=== PATIENT | male | born 1940 | race Caucasian/White ===

== ENCOUNTER → 2017-09-01 | Outpatient (RCR) | payer MEDICARE, OTHER | END | disposition home or self-care (01) | LOC: CR3 08-02 11:00 | PROVIDERS: ATTEND Family Medicine | DX: Z29.8 Encounter for other specified prophylactic measures (principal) ==

== ENCOUNTER 2017-10-01 15:10 | Outpatient (RCR) | payer MEDICARE, OTHER | END 2017-10-03 | disposition home or self-care (01) | LOC: CR3 15:10 | PROVIDERS: ATTEND Family Medicine | DX: Z29.8 Encounter for other specified prophylactic measures (principal) ==

== ENCOUNTER 2017-11-01 16:43 | Outpatient (RCR) | payer MEDICARE, OTHER | END 2017-11-03 | disposition home or self-care (01) | LOC: CR3 16:43 | PROVIDERS: ATTEND Family Medicine | DX: Z29.8 Encounter for other specified prophylactic measures (principal) ==

== ENCOUNTER 2017-12-01 14:21 | Outpatient (RCR) | payer MEDICARE, OTHER | END 2017-12-05 | disposition home or self-care (01) | LOC: CR3 14:21 | PROVIDERS: ATTEND Family Medicine | DX: Z29.8 Encounter for other specified prophylactic measures (principal) ==

== ENCOUNTER → 2018-01-05 | Outpatient (RCR) | payer MEDICARE, OTHER | END | disposition home or self-care (01) | LOC: CR3 12-06 06:00 | PROVIDERS: ATTEND Family Medicine | DX: Z29.8 Encounter for other specified prophylactic measures (principal) ==

== ENCOUNTER 2018-02-04 16:00 | Outpatient (RCR) | payer MEDICARE, OTHER | END 2018-02-06 | disposition home or self-care (01) | LOC: CR3 16:00 | PROVIDERS: ATTEND Family Medicine | DX: Z29.8 Encounter for other specified prophylactic measures (principal) ==

== ENCOUNTER → 2018-03-09 | Outpatient (RCR) | payer MEDICARE, OTHER | END | disposition home or self-care (01) | LOC: CR3 02-07 14:30 | PROVIDERS: ATTEND Family Medicine | DX: Z29.8 Encounter for other specified prophylactic measures (principal) ==

== ENCOUNTER 2018-04-13 14:57 | Outpatient (RCR) | payer MEDICARE, OTHER | END 2018-04-15 | disposition home or self-care (01) | LOC: CR3 14:57 | PROVIDERS: ATTEND Family Medicine | DX: Z29.8 Encounter for other specified prophylactic measures (principal) ==

== ENCOUNTER → 2018-05-18 | Outpatient (RCR) | payer MEDICARE, OTHER | END | disposition home or self-care (01) | LOC: CR3 04-18 15:00 | PROVIDERS: ATTEND Family Medicine | DX: Z29.8 Encounter for other specified prophylactic measures (principal) ==

== ENCOUNTER 2018-06-15 16:29 | Outpatient (RCR) | payer MEDICARE, OTHER | END 2018-06-19 | disposition home or self-care (01) | LOC: CR3 16:29 | PROVIDERS: ATTEND Family Medicine | DX: Z29.8 Encounter for other specified prophylactic measures (principal) ==

== ENCOUNTER → 2018-07-20 | Outpatient (RCR) | payer MEDICARE, OTHER | END | disposition home or self-care (01) | LOC: CR3 06-20 15:30 | PROVIDERS: ATTEND Family Medicine | DX: Z29.8 Encounter for other specified prophylactic measures (principal) ==

== ENCOUNTER 2018-08-17 14:24 | Outpatient (RCR) | payer MEDICARE, OTHER | END 2018-08-21 | disposition home or self-care (01) | LOC: CR3 14:24 | PROVIDERS: ATTEND Family Medicine | DX: Z29.8 Encounter for other specified prophylactic measures (principal) ==

== ENCOUNTER → 2018-09-21 | Outpatient (RCR) | payer MEDICARE, OTHER | END | disposition home or self-care (01) | LOC: CR3 08-22 14:00 | PROVIDERS: ATTEND Family Medicine | DX: Z29.8 Encounter for other specified prophylactic measures (principal) ==

== ENCOUNTER → 2018-09-28 | Outpatient (CLI) | payer MEDICARE, OTHER ==
--- NOTE | 2018-09-28 17:32 | Diagnostic Imaging Report ---
INDICATION: Left hip pain. COMPARISON: None available. TECHNIQUE: Two radiographs of the left hip dated 09/28/2018. FINDINGS: No acute fracture or dislocation. No destructive osseous process. Mild degenerative changes within the left hip with mild joint space narrowing. The left femoral head maintains normal shape and contour. The pubic symphysis is intact. Scattered vascular calcifications. Surgical clips are seen within the soft tissues of the medial left thigh. IMPRESSION: 1. No acute osseous abnormality with mild degenerative changes. 2. Moderate vascular calcifications. Dictated on workstation # [id number]
== END ==
LOC: RAD 13:48
PROVIDERS: ATTEND Family Medicine
DX: M25.552 Pain in left hip (principal); I99.8 Other disorder of circulatory system
CPT/HCPCS: 73502

== ENCOUNTER → 2018-10-26 | Outpatient (CLI) | payer MEDICARE ==
--- NOTE | 2018-10-26 16:42 | Diagnostic Imaging Report ---
INDICATION: Persistent cough, 30 pound weight loss over 3 months. PA and lateral chest. FINDINGS: There are postop changes from CABG surgery. Heart size and pulmonary vascularity are normal. Lungs are clear. There are no effusions or pneumothoraces. IMPRESSION: Postsurgical changes of the chest. No acute abnormality seen. Dictated by: Dictated on workstation # [id number]
== END ==
LOC: RAD 15:55
PROVIDERS: ATTEND Nurse Practitioner Family
DX: R05 Cough (principal); R63.4 Abnormal weight loss; Z95.1 Presence of aortocoronary bypass graft
CPT/HCPCS: 71046

== ENCOUNTER → 2018-10-28 | Outpatient (RCR) | payer MEDICARE, OTHER | END | disposition home or self-care (01) | LOC: CR3 09-28 16:34 | PROVIDERS: ATTEND Family Medicine | DX: Z29.8 Encounter for other specified prophylactic measures (principal) ==

== ENCOUNTER → 2018-11-30 | Outpatient (RCR) | payer MEDICARE | END | disposition home or self-care (01) | LOC: CR3 10-31 16:12 | PROVIDERS: ATTEND Family Medicine | DX: Z29.8 Encounter for other specified prophylactic measures (principal) ==

== ENCOUNTER 2018-12-30 15:31 | Outpatient (RCR) | payer MEDICARE | END 2019-01-01 | disposition home or self-care (01) | LOC: CR3 15:31 | PROVIDERS: ATTEND Family Medicine | DX: Z29.8 Encounter for other specified prophylactic measures (principal) ==

== ENCOUNTER → 2019-01-23 | Outpatient (CLI) | payer MEDICARE ==
--- NOTE | 2019-01-23 13:25 | Diagnostic Imaging Report ---
INDICATION: Cough x3 weeks. PA and lateral chest. FINDINGS: There are postop changes from CABG surgery. Heart size is at the upper limits of normal. Pulmonary vascularity is normal. Lungs are clear. IMPRESSION: Postsurgical changes in the chest. No infiltrates or acute abnormality seen. Dictated by: Dictated on workstation # [id number]
== END ==
LOC: RAD 11:29
PROVIDERS: ATTEND Family Medicine
DX: R05 Cough (principal); Z98.890 Other specified postprocedural states
CPT/HCPCS: 71046

== ENCOUNTER → 2019-01-27 | Outpatient (CLI) | payer MEDICARE ==
--- NOTE | 2019-01-27 14:36 | Diagnostic Imaging Report ---
PROCEDURE: US Thyroid. TECHNIQUE: Multiple real-time grayscale images were obtained of the thyroid in various projections. INDICATION: Thyroid nodule. COMPARISON: No prior thyroid ultrasounds are available for comparison. FINDINGS: Right lobe of the thyroid measures 5.5 x 2.5 x 2.0 cm and the left lobe measures 6.1 x 2.1 x 2.3 cm. Heterogeneous hypoechoic nodule in mid portion of left lobe of thyroid measures 1.5 x 0.9 x 1.0 cm. No microcalcifications are seen. A right mid thyroid nodule measures 1.5 x 1.1 x 1.3 cm. No definite microcalcifications are seen. A nodule in the lower pole is seen measuring 1.2 x 1.1 x 1.5 cm. No microcalcifications are identified. Isthmus is 8 mm in thickness. IMPRESSION: Multinodular thyroid, likely owing to multinodular goiter. Followup ultrasound in six months could be performed to confirm stability. Dictated by: Dictated on workstation # [id number]
== END ==
LOC: RAD 10:50
PROVIDERS: ATTEND Family Medicine
DX: E04.2 Nontoxic multinodular goiter (principal)
CPT/HCPCS: 76536

== ENCOUNTER → 2019-02-03 | Outpatient (RCR) | payer MEDICARE | END | disposition home or self-care (01) | LOC: CR3 01-04 15:00 | PROVIDERS: ATTEND Family Medicine | DX: Z29.8 Encounter for other specified prophylactic measures (principal) ==

== ENCOUNTER → 2019-03-08 | Outpatient (RCR) | payer MEDICARE | END | disposition home or self-care (01) | LOC: CR3 02-06 14:00 | PROVIDERS: ATTEND Family Medicine | DX: Z29.8 Encounter for other specified prophylactic measures (principal) ==

== ENCOUNTER 2019-04-07 16:12 | Outpatient (RCR) | payer MEDICARE | END 2019-04-09 | disposition home or self-care (01) | LOC: CR3 16:12 | PROVIDERS: ATTEND Family Medicine | DX: Z29.8 Encounter for other specified prophylactic measures (principal) ==

== ENCOUNTER → 2019-05-10 | Outpatient (RCR) | payer MEDICARE | END | disposition home or self-care (01) | LOC: CR3 04-10 14:26 | PROVIDERS: ATTEND Family Medicine | DX: Z29.8 Encounter for other specified prophylactic measures (principal) ==

== ENCOUNTER 2019-06-09 13:45 | Outpatient (RCR) | payer MEDICARE | END 2019-06-11 | disposition home or self-care (01) | LOC: CR3 13:45 | PROVIDERS: ATTEND Family Medicine | DX: Z29.8 Encounter for other specified prophylactic measures (principal) ==

== ENCOUNTER → 2019-07-12 | Outpatient (RCR) | payer MEDICARE ==
--- NOTE | 2019-07-11 17:19 | NUR ---
CONTACTED PT FOR INFECTIOUS DISEASE SCREENING (PER ADMINISTRATION ORDERS): PT STATES HE DID HAVE COUGH, BUT SAW DR MASON. HE HAS TAKEN STEROIDS, TAMIFLU AND HAS BEEN SYMPTOM FREE FOR 10 DAYS.
== END | disposition home or self-care (01) ==
LOC: CR3 06-12 15:00
PROVIDERS: ATTEND Family Medicine
DX: Z29.8 Encounter for other specified prophylactic measures (principal)

== ENCOUNTER 2019-07-14 15:00 | Outpatient (RCR) | payer MEDICARE | END 2019-08-13 | disposition home or self-care (01) | LOC: CR3 15:00 | PROVIDERS: ATTEND Family Medicine | DX: Z29.8 Encounter for other specified prophylactic measures (principal) ==

== ENCOUNTER → 2019-09-26 | Outpatient (CLI) | payer MEDICARE ==
--- NOTE | 2019-09-26 19:05 | Diagnostic Imaging Report ---
PROCEDURE: US Thyroid. TECHNIQUE: Multiple real-time grayscale images were obtained of the thyroid in various projections. INDICATION: Multinodular goiter. Correlation is made with prior thyroid ultrasound from 01/27/2019. FINDINGS: Right lobe of the thyroid measures 5.5 x 2.2 x 1.7 cm and the left lobe measures 5.3 x 1.9 x 2.0 cm. Isthmus is 6 mm in thickness. Both lobes remain heterogeneous. There are bilateral thyroid nodules. Nodule in the lower pole of right lobe measures slightly smaller today at 1.1 cm in diameter compared with 1.5 cm on prior. A nodule in the mid aspect of the right lobe on prior is not well seen today. A left lobe thyroid nodule is also measuring slightly smaller at approximately 12 mm compared with 15 mm. No new mass is detected. IMPRESSION: Bilateral thyroid nodules appearing slightly smaller on today's study when compared with exam from 01/27/2019. No dominant thyroid mass is detected. Dictated by: Dictated on workstation # [id number]
== END ==
LOC: RAD 12:45
PROVIDERS: ATTEND Nurse Practitioner Family
DX: E04.2 Nontoxic multinodular goiter (principal)
CPT/HCPCS: 76536

== ENCOUNTER → 2020-07-16 | Outpatient (CLI) | payer MEDICARE | LOC: WOUNDCARE 14:40 | PROVIDERS: ATTEND Surgery | DX: L89.313 Pressure ulcer of right buttock, stage 3 (principal); M16.12 Unilateral primary osteoarthritis, left hip; M25.552 Pain in left hip | CPT/HCPCS: 99212 ==

== ENCOUNTER → 2020-07-22 | Outpatient (CLI) | payer MEDICARE | LOC: WOUNDCARE 11:41 | PROVIDERS: ATTEND Surgery | DX: I96 Gangrene, not elsewhere classified (principal); L89.313 Pressure ulcer of right buttock, stage 3; M16.12 Unilateral primary osteoarthritis, left hip | CPT/HCPCS: 99212 ==

== ENCOUNTER → 2020-07-29 | Outpatient (CLI) | payer MEDICARE | LOC: WOUNDCARE 11:03 | PROVIDERS: ATTEND Surgery | DX: I96 Gangrene, not elsewhere classified (principal); L89.313 Pressure ulcer of right buttock, stage 3; M16.12 Unilateral primary osteoarthritis, left hip; E44.1 Mild protein-calorie malnutrition | CPT/HCPCS: 99212 ==

== ENCOUNTER → 2020-08-05 | Outpatient (CLI) | payer MEDICARE | LOC: WOUNDCARE 10:51 | PROVIDERS: ATTEND Surgery | DX: I96 Gangrene, not elsewhere classified (principal); L89.313 Pressure ulcer of right buttock, stage 3; M16.12 Unilateral primary osteoarthritis, left hip; E44.1 Mild protein-calorie malnutrition | CPT/HCPCS: 99212 ==

== ENCOUNTER 2020-08-19 11:09 | Inpatient (IN) | payer MEDICARE ==
[~2020-08-19] VITALS: Ht 175.3 cm; Wt 73.8 kg
[2020-08-19] MEDS ORDERED: LOPERAMIDE 2 MG (IMODIUM) TABLET PO PRN (12:30)
[2020-08-19] MEDS ORDERED: ALPRAZolam 0.25 MG (XANAX) TAB PO PRN (12:30)
[2020-08-19] MEDS ORDERED: LACTULOSE SYRUP 10GM/15ML (ENULOSE) 30ML UDC PO PRN (12:30)
[2020-08-19] MEDS ORDERED: diphenhydrAMINE 25 MG TAB (BENADRYL) PO PRN (12:30)
[2020-08-19] MEDS ORDERED: DOCUSATE SODIUM 100 MG (COLACE) CAP PO PRN (12:30)
[2020-08-19] MEDS ORDERED: CALCIUM CARBONATE 500 MG (TUMS) TAB.CHEW PO PRN (12:30)
[2020-08-19] MEDS ORDERED: ONDANSETRON 4 MG (ZOFRAN) ORAL DISSOLVE TAB PO PRN (12:30)
[2020-08-19] MEDS ORDERED: FLEET ENEMA ADULT 1 EA BTL PR PRN (12:30)
[2020-08-19] MEDS ORDERED: guaiFENesin/CODEINE (ROBITUSSIN AC) 10ML UDC PO PRN (12:30)
[2020-08-19] MEDS ORDERED: MELATONIN 3 MG TABLET PO PRN (12:30)
[2020-08-19] MEDS ORDERED: BISACODYL 10 MG SUPP (DULCOLAX) PR PRN (12:30)
[2020-08-19] MEDS ORDERED: MUPI22OI2 NSEACH (13:59)
[2020-08-19] MEDS ORDERED: MULT-1009 PO (13:59)
[2020-08-19] MEDS ORDERED: GABA-486 PO (13:59)
[2020-08-19] MEDS ORDERED: FOLI1TAB33 PO (13:59)
[2020-08-19] MEDS ORDERED: BETA15OI2 TP (13:59)
[2020-08-19] MEDS ORDERED: FURO40TA4 PO (13:59)
[2020-08-19] MEDS ORDERED: RT-ALBUINH IH (13:59)
[2020-08-19] MEDS ORDERED: NITR0.4T39 SL (13:59)
[2020-08-19] MEDS ORDERED: CALC-250 PO (13:59)
[2020-08-19] MEDS ORDERED: LYSI500T10 PO (13:59)
[2020-08-19] MEDS ORDERED: TRM50T PO (13:59)
[2020-08-19] MEDS ORDERED: RANO500T3 PO (13:59)
[2020-08-19] MEDS ORDERED: METO100T12 PO (13:59)
[2020-08-19] MEDS ORDERED: PRAV80TA2 PO (13:59)
[2020-08-19] MEDS ORDERED: FENO145T2 PO (13:59)
[2020-08-19] MEDS ORDERED: CYAN-41 PO (13:59)
[2020-08-19] MEDS ORDERED: SENN-145 PO (13:59)
[2020-08-19] MEDS ORDERED: [UNRECOGNIZED DRUG - SUPPLY] TOP (13:59)
[2020-08-19] MEDS ORDERED: TERA5CAP10 PO (13:59)
[2020-08-19] MEDS ORDERED: FAMO20TA3 PO (13:59)
[2020-08-19] MEDS ORDERED: CLOP75TA69 PO (13:59)
[2020-08-19] MEDS ORDERED: ASPI-1238 PO (13:59)
[2020-08-19] MEDS ORDERED: NF-ESOM40C PO (13:59)
[2020-08-19] MEDS ORDERED: ISOS30TA82 PO (13:59)
[2020-08-19 14:00] VITALS: BP 127/78
--- NOTE | 2020-08-19 15:10 | Occupational Therapy Eval ---
OT Evaluation-General/PLF Medical Diagnosis Admission Date Aug 19, 2020 at 14:10 Medical Diagnosis: L DENISA Onset Date: Aug 12, 2020 Therapy Diagnosis Therapy Diagnosis: weakness, decreased ADL status Precautions Precautions/Isolations: Fall Prevention, Standard Precautions, Pressure Ulcer Referral Physician: Henrry Joiner Reason: Evaluation/Treatment Medical History Pertinent Medical History: Arthritis, CABG, CAD, CVA, GERD, HTN Additional Medical History lumbar laminectomy, CKD, HLD, ischemic cardiomyopathy, pacemaker. Current History s/p L DENISA 08/12/20 (anterior approach with anterior hip precautions) due to avascular necrosis of L hip bone Social History Home: Multilevel Current Living Status: Alone Entry Into Home: Ramp (into house), Stairs With Railing Steps Inside Home: 13 Pt has 2 stories, able to manage on just one floor but would like to use both floors. ADL-Prior Level of Function SCALE: Activities may be completed with or without assistive devices. 8-Aoxxavyvmh-ayhnxyc completes the activity by him/herself with no assistance from a helper. 5-Set-up or Clean-up Assistance-helper sets up or cleans up; patient completes activity. [place] assists only prior to or following the activity. 4-Supervision or Touching Assistance-helper provides verbal cues and/or touching/steadying and/or contact guard assistance as patient completes activit y. Assistance may be provided throughout the activity or intermittently. 3-Partial/Moderate Assistance-helper does LESS THAN HALF the effort. [place] lifts, holds or supports trunk or limbs, but provides less than half the effort. 2-Substantial/Maximal Assistance-helper does MORE THAN HALF the effort. [place] lifts or holds trunk or limbs and provides more than half the effort. 1-Ghovdjnol-ebavbo does ALL the effort. Patient does none of the effort to complete the activity. Or, the assistance of 2 or more helpers is required for the patient to complete the activity. If activity was not attempted, code reason: 7-Patient Refused. 9-Not Applicable-not attempted and the patient did not perform the activity before the current illness, exacerbation or injury. 10-Not Attempted due to Environmental Limitations-(lack of equipment, weather restraints, etc.). 88-Not Attempted due to Medical Conditions or Safety Concerns. ADL PLOF Comments Pt independent with ADLs and functional mobility at [facility], primarily uses walker but also has w/c. Self Care: Independent Functional Cognition: Independent DME/Equipment: Bath Chair, Shower OT Current Status Subjective Pt agreeable to OT evaluation then OT/PT cotreat. 2/10 pain in L hip. Mental Status/Objective Patient Orientation: Person, Place, Time, Situation Current Glasses/Contacts: Yes Hearing Aids: No Dentures/Partials: Yes (partials) Hand Dominance: Right Upper Extremity ROM WFL Upper Extremity Coordination WFL Upper Extremity Sensation WFL Upper Extremity Strength grossly 4/5 BUEs ADL-Treatment Eating (QC): 6 (per pt report) Oral Hygiene (QC): 4 (SBA standing at sink.) Shower/Bathe Self (QC): 3 (Min A with LEs. Pt able to wash/dry all other parts with SBA in stand at GBs) Upper Body Dressing (QC): 5 (set up) Lower Body Dressing (QC): 3 (Min A donning/doffing LLE with pants) On/Off Footwear (QC): 3 (Min A doffing/donning LLE footwear. Pt able to complete RLE.) Toileting Hygiene (QC): 4 (SBA, pt able to manage clothing and perform hygiene.) Pt required increased time with all ADLs due to slow movements and thoroughness with tasks. Other Treatments OT evaluation complete then OT/PT cotreat due to skill of 2 clinicians required which a clinical rehab liaison could not perform in order to coordinate UE/LEs, to decrease fall risk, and due to pt's limitations in pain, mobility, activity tolerance, and strength. OT focused on UE placement, cues for sequencing and safety, ADLs, PT focused on LE placement, gross overall movements, transfers/mobility. Pt used FWW to bathroom, stood at sink to complete oral care, then transferred onto [place]. Pt doffed clothes, completed shower, then transferred to chair to get dressed. Pt required increased time with all ADLs due to slow movements and thoroughness with tasks. He then stood at FWW and ambulated into therapy gym. Pt stood at FWW to hit balloon back and forth with OT as PT assisted with balance. This was complete to focus on higher level balance as well as activity tolerance. Pt took a seated rest break, then used FWW to return to his room. Post tx, pt seated in recliner, call light in reach and all needs met. 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 2=Patient will verbalize/demonstrate understanding of assistive devices /modifications for ADL. 3=Patient will improve strength/tolerance for activity to enable patient to perform ADL's. OT Education/Plan Problem List/Assessment Assessment: Decreased Activ Tolerance, Decreased UE Strength, Impaired Funct Balance, Impaired I ADL's, Impaired Self-Care Skills Discharge Recommendations Plan/Recommendations: Continue POC Equpiment Recommendations-D/C: Hip Kit Treatment Plan/Plan of Care Patient would benefit from OT for education, treatment and training to promote independence in ADL's, mobility, safety and/or upper extremity function for ADL's. Plan of Care: ADL Retraining, Functional Mobility, Group Exercise/Act as Ind, UE Funct Exercise/Act Treatment Duration: September 06, 2020 Frequency: At least 5 of 7 days/Wk (IRF) Estimated Hrs Per Day: 1.5 hours per day Rehab Potential: Good Time/GCodes Start Time: 14:20 Stop Time: 15:50 Total Time Billed (hr/min): 90 Billed Treatment Time [id number] OT evaluation, [id number] OT/PT cotreat 1, EVM (10'), ADL 4 (60'), FA (15') MILLIE BRANCH OT Aug 19, 2020 15:09
--- NOTE | 2020-08-19 15:31 | Physical Therapy Evaluation ---
PT Evaluation-General Medical Diagnosis Admission Date Aug 19, 2020 at 14:10 Medical Diagnosis: L DENISA Onset Date: Aug 12, 2020 Therapy Diagnosis Therapy Diagnosis: weakness; abn gait Precautions Precautions/Isolations: Fall Prevention, Standard Precautions, Pressure Ulcer Referral Physician: Henrry Reason for Referral: Evaluation/Treatment Medical History Pertinent Medical History: Arthritis, CABG, CAD, CVA, GERD, HTN Additional Medical History Chronic kidney disease, ischemic cardiomyopathy, pacemaker, lumbar laminectomy. Current History Left THR post avascular necrosis of hip. Surgery 08/12/2020. Reviewed History: Yes Social History Home: Multilevel Current Living Status: Alone Entry Into Home: Ramp, Stairs With Railing PT Steps Inside Home: 13 Prior Prior Level of Function SCALE: Activities may be completed with or without assistive devices. 1-Fntgafydll-ziduvei completes the activity by him/herself with no assistance from a helper. 5-Set-up or Clean-up Assistance-helper sets up or cleans up; patient completes activity. [place] assists only prior to or following the activity. 4-Supervision or Touching Assistance-helper provides verbal cues and/or touching/steadying and/or contact guard assistance as patient completes activity. Assistance may be provided throughout the activity or intermittently. 3-Partial/Moderate Assistance-helper does LESS THAN HALF the effort. [place] lifts, holds or supports trunk or limbs, but provides less than half the effort. 2-Substantial/Maximal Assistance-helper does MORE THAN HALF the effort. [place] lifts or holds trunk or limbs and provides more than half the effort. 8-Dxsfxyafz-dofpyq does ALL the effort. Patient does none of the effort to complete the activity. Or, the assistance of 2 or more helpers is required for the patient to complete the activity. If activity was not attempted, code reason: 7-Patient Refused. 9-Not Applicable-not attempted and the patient did not perform the activity b efore the current illness, exacerbation or injury. 10-Not Attempted due to Environmental Limitations-(lack of equipment, weather restraints, etc.). 88-Not Attempted due to Medical Conditions or Safety Concerns. Bed Mobility: 6 Transfers (B,C,W/C): 6 Gait: 6 Stairs: 6 Indoor Mobility (Ambulation): Independent Stairs: Independent PT Evaluation-Current Subjective Pt agreeable to PT. Reports he is anxious to start therapy services. Pt/Family Goals Return home alone as before. Objective Patient Orientation: Person, Place, Time, Situation ROM/Strength ROM Lower Extremities WNL Strength Lower Extremities Rigth LE strength 5/5; left LE strength grossly 4-/5 throughout Integumentary/Posture Integumentary Refer to nursing notes for full assessement. Bowel Incontinence: No Bladder Incontinence: No Posture normal and symmetrical Neuromuscular (Tone, Coordination, Reflexes) intact and without functional deficit Sensory Vision: Functional Hearing: Functional Hand Dominance: Right Sensation Right Lower Extremit: Intact Sensation Left Lower Extremity: Intact Transfers Roll Left & Right (QC): 4 Sit to Lying (QC): 3 (assist with left LE) Lying to Sitting/Side of Bed(Q: 3 (assist with left LE) Sit to Stand (QC): 4 Chair/Dij-th-Nhgiq Xfer(QC): 4 Toilet Transfer (QC): 4 Car Transfer (QC): 3 (asssit wth left LE) Gait Does the Patient Walk?: Yes Mode of Locomotion: Walk Anticipated Mode of Locomotion: Walk Walk 10 feet (QC): 4 Walk 50 ft with 2 Turns(QC): 4 Walk 150 ft (QC): 4 Walking 10ft/uneven surface-QC: 3 (min assist for balance/safety) Gait Assistive Device: FWW Comments/Gait Description slightly antalgic with decreased pace Wheelchair Training Does the Pt Use a Wheelchair?: No Wheel 50 ft with 2 turns (QC): 9 Wheel 150 ft (QC): 9 Stairs 1 Step (curb) (QC): 3 4 Steps (QC): 88 12 Steps (QC): 88 Balance Sitting Static: Normal Sitting Dynamic: Normal Standing Static: Fair Standing Dynamic: Fair Picking up an Object (QC): 88 Assessment/Needs Post left THR due to avascular necrosis. He presents with functional left LE weakness and balance deficits as well as impaired functional activity [place] that limits bed mobility, transfers and gait. He is unable to safely or effectively mobilize without assist. He will benefit from skilled PT services to address his deficits and allow him to return home alone as before. He has good potential to progress. Rehab Potential: Good PT Short Term Goals Short Term Goals Time Frame: Aug 26, 2020 Sit to lyin Lying to sitting on side of be: 5 Walk 150 feet: 5 4 steps: 4 PT Acting Professor Goals Alf Goals PT Alf Goals Time Frame: September 04, 2020 Roll Left & Right (QC): 6 Sit to Lying (QC): 6 Lying-Sitting on Side/Bed(QC): 6 Sit to Stand (QC): 6 Chair/Xsm-ir-Uliiu Xfer(QC): 6 Toilet Transfer (QC): 6 Car Transfer (QC): 6 Does the Patient Walk: Yes Walk 10 feet (QC): 6 Walk 50ft with 2 Turns (QC): 6 Walk 150 ft (QC): 6 Walking 10ft on Uneven Surface: 6 1 Step (curb) (QC): 6 4 Steps (QC): 6 12 Steps (QC): 6 Picking up an Object (QC): 4 Does the Pt use WC or Scooter?: No Wheel 50 feet with 2 turns (QC: 9 Wheel 150 feet: 9 PT Plan Problem List Problem List: Activity Tolerance, Functional Strength, Safety, Balance, Gait, Transfer, Bed Mobility Treatment/Plan Treatment Plan: Continue Plan of Care Treatment Plan: Bed Mobility, Education, Functional Activity Leonela, Functional Strength, Group Therapy, Gait, Safety, Therapeutic Exercise, Transfers Treatment Duration: September 04, 2020 Frequency: At least 5 of 7 days/Wk (IRF) Estimated Hrs Per Day: 1.5 hours per day Patient and/or Family Agrees t: Yes Safety Risks/Education Patient Education: Safety Issues Teaching Recipient: Patient Teaching Methods: Discussion Response to Teaching: Reinforcement Needed Time/GCodes Time In: 1410 Time Out: 1420 Total Billed Treatment Time: 10 Total Billed Treatment visit [place] 10 JOVANY JACOBS PT Aug 19, 2020 15:31
--- NOTE | 2020-08-19 15:52 | Physical Therapy Daily Note ---
PT Daily Note-Current Subjective Patient reports 2/10 hip pain, seated upright in recliner pre tx. Patient consented to PT. Appearance Patient seated upright in chair, with call button and tray table within reach, all needs met. Mental Status Patient Orientation: Person, Place, Time, Normal For Age Transfers SCALE: Activities may be completed with or without assistive devices. 0-Xzlcscprhg-ucorxaz completes the activity by him/herself with no assistance from a helper. 5-Set-up or Clean-up Assistance-helper sets up or cleans up; patient completes activity. [place] assists only prior to or following the activity. 4-Supervision or Touching Assistance-helper provides verbal cues and/or touching/steadying and/or contact guard assistance as patient completes activ ity. Assistance may be provided throughout the activity or intermittently. 3-Partial/Moderate Assistance-helper does LESS THAN HALF the effort. [place] lifts, holds or supports trunk or limbs, but provides less than half the effort. 2-Substantial/Maximal Assistance-helper does MORE THAN HALF the effort. [place] lifts or holds trunk or limbs and provides more than half the effort. 9-Vfgikrlzb-oiohww does ALL the effort. Patient does none of the effort to complete the activity. Or, the assistance of 2 or more helpers is required for the patient to complete the activity. If activity was not attempted, code reason: 7-Patient Refused. 9-Not Applicable-not attempted and the patient did not perform the activity before the current illness, exacerbation or injury. 10-Not Attempted due to Environmental Limitations-(lack of equipment, weather restraints, etc.). 88-Not Attempted due to Medical Conditions or Safety Concerns. Sit to Stand (QC): 4 Chair/Nff-ww-Duqed Xfer(QC): 4 SBA Gait Training Does the Patient Walk?: Yes Distance: 120' x2 Walk 10 feet (QC): 4 Walk 50 ft with 2 Turns(QC): 4 Gait Assistive Device: FWW SBA. Gait is steady, patient bears weight well through L LE Treatments Co-treated with OT secondary to patient impairments and decreased balance. PT focused on transfers and balance with ADLs (patient bathed) while OT focused on ADLs and grooming techniques. PT and OT added balloon-batting game for 10 min to challenge patient static balance with UE reaching outside of YO. Patient was able to accomplish activity with no dipika LOB. Assessment Current Status: Good Progress Patient demonstrates steadiness with transfers and functional mobility, is not restricted in movement by pain. PT Short Term Goals Short Term Goals Time Frame: Aug 26, 2020 Sit to lyin Lying to sitting on side of be: 5 Walk 150 feet: 5 4 steps: 4 PT Mcc Goals Mcc Goals PT Mcc Goals Time Frame: September 04, 2020 Roll Left & Right (QC): 6 Sit to Lying (QC): 6 Lying-Sitting on Side/Bed(QC): 6 Sit to Stand (QC): 6 Chair/Bjm-fu-Fbnjw Xfer(QC): 6 Toilet Transfer (QC): 6 Car Transfer (QC): 6 Does the Patient Walk: Yes Walk 10 feet (QC): 6 Walk 50ft with 2 Turns (QC): 6 Walk 150 ft (QC): 6 Walking 10ft on Uneven Surface: 6 1 Step (curb) (QC): 6 4 Steps (QC): 6 12 Steps (QC): 6 Picking up an Object (QC): 4 Does the Pt use WC or Scooter?: No Wheel 50 feet with 2 turns (QC: 9 Wheel 150 feet: 9 PT Plan Problem List Problem List: Activity Tolerance, Functional Strength, Safety, Balance, Gait, Transfer, Bed Mobility, ROM Treatment/Plan Treatment Plan: Continue Plan of Care Treatment Plan: Bed Mobility, Education, Functional Activity Leonela, Functional Strength, Group Therapy, Gait, Safety, Therapeutic Exercise, Transfers Treatment Duration: September 04, 2020 Frequency: At least 5 of 7 days/Wk (IRF) Estimated Hrs Per Day: 1.5 hours per day Patient and/or Family Agrees t: Yes Safety Risks/Education Patient Education: Gait Training, Transfer Techniques, Reviewed Precautions, Correct Positioning, Safety Issues Teaching Recipient: Patient Teaching Methods: Demonstration, Discussion Response to Teaching: Verbalize Understanding, Return Demonstration Time/GCodes Time In: 1430 Time Out: 1550 Total Billed Treatment Time: 80 Total Billed Treatment 1 visit: FA x4: 65' EX: 15' LUZ BOYD PT Aug 19, 2020 15:52
[2020-08-19 16:10] VITALS: BP 109/65
--- NOTE | 2020-08-19 17:36 | PM&R Post Admission Assessment ---
PM&R HP Date of Visit: Aug 19, 2020 Time of Visit: 18:00 History of Present Illness CC: Left hip fracture debility HPI: This is an orthopedic surgery patient of Dr. Lim who presents from [facility] due to left hip fracture s/p repair and in need of recovery. He will need aggressive PT and OT to gain enough function to return to independent living. At this current time, Pt reports pain is well controlled, and he has been waiting on insurance approval for six days. BM+. Voiding well. Went to ICU the day of surgery due to hypotension and required 1 unit of blood. Pain is improving by the day. 1.5 years ago and still dealing with grief. Past Rwmskeq-Anrlyl-Tfqopw Hx Past Med/Social Hx: Reviewed Nursing Past Med/Soc Hx, Reviewed and Corrections made Patient Social History Marrital Status: Employed/Student: retired Alcohol Use: Denies Use Smoking Status: Never a Smoker Immunizations Up To Date Date of Influenza Vaccine: Jan 31, 2020 Past Medical History Surgeries: Orthopedic Cardiac: Coronary Artery Disease, High Cholesterol, Hypertension Genitourinary: Benign Prostatic Hyperpl Gastrointestinal: Gastroesophageal Reflux Musculoskeletal: Arthritis, Chronic Back Pain Prior Level of Function Bed Mobility: 6 Transfers: 6 Gait: 6 Stairs: 6 Indoor Mobility (Ambulation): Independent Stairs: Independent Self Care: Independent Functional Cognition: Independent Current Level of Fuctioning Roll Left to Right: 4 Sit to Lyin (assist with left LE) Lying to Sitting/Side of Bed: 3 (assist with left LE) Sit to Stand: 4 Chair/Mvl-gr-Gxgco Xfer: 4 Car Transfer: 3 (asssit [facility] left LE) Does the Patient Walk: Yes Mode of Locomotion: Walk Anticipated Mode of Locomotion: Walk Walk 10 feet: 4 Walk 50 ft with 2 Turns: 4 Walk 150 ft: 4 Walking 10ft on uneven surface: 3 (min assist for balance/safety) Gait Assistive Device: FWW Does the Pt Use a Wheelchair: No Wheel 50 ft with 2 turns: 9 Wheel 150 ft: 9 1 Step (curb): 3 4 Steps: 88 12 Steps: 88 Picking up an Object: 88 Eatin (per pt report) Oral Hygiene: 4 (SBA standing at sink.) Shower/Bathe Self: 3 (Min A with LEs. Pt able to wash/dry all other parts with SBA in stand at GBs) Upper Body Dressin (set up) Lower Body Dressin (Min A donning/doffing LLE with pants) On/Off Footwear: 3 (Min A doffing/donning LLE footwear. Pt able to complete RLE.) Toileting Hygiene: 4 (SBA, pt able to manage clothing and perform hygiene.) PM&R Allergy/Meds/Data Review Allergies Coded Allergies: No Known Allergies (Verified Allergy, Unknown, 08/19/20) Home Medications Scheduled Aspirin (Aspirin EC), 81 MG PO DAILY, (Reported) Cholecalciferol (Vitamin D3) (Vitamin D3), 125 MCG PO DAILY, (Reported) Clopidogrel Bisulfate (Plavix), 75 MG PO DAILY, (Reported) Cyanocobalamin (Vitamin B-12) (Vitamin B-12), 1,000 MCG PO DAILY, (Reported) Esomeprazole Magnesium (Nexium), 40 MG PO DAILY, (Reported) Famotidine (Acid Project Lead (FAMOTIDINE)), 20 MG PO HS, (Reported) Fenofibrate Nanocrystallized (Tricor), 145 MG PO DAILY, (Reported) Folic Acid (Folic Acid), 1 MG PO DAILY, (Reported) Gabapentin (Gabapentin), 100 MG PO BID, (Reported) Isosorbide Mononitrate (Isosorbide Mononitrate ER), 15 MG PO DAILY, (Reported) Metoprolol Tartrate (Metoprolol Tartrate), 50 MG PO BID, (Reported) Multivits,Ca,Minerals/Iron/FA (Thera M Plus Tablet), 1 EACH PO DAILY, (Reported) Mupirocin (Mupirocin), 1 APPLIC NSEACH BID, (Reported) Pravastatin Sodium (Pravastatin Sodium), 80 MG PO HS, (Reported) Ranolazine (Ranexa), 500 MG PO Q12H, (Reported) Sennosides/Docusate Sodium (Senna S Tablet), 1 EACH PO BID, (Reported) Terazosin HCl (Terazosin HCl), 5 MG PO HS, (Reported) [Hydrophilic Dressing], 1 APPLIC TOP Q8H, (Reported) Scheduled PRN Albuterol Sulfate (Proair Hfa), 1 PUFF IH Q4H PRN for SHORTNESS OF BREATH, (Reported) Betamethasone Valerate (Betamethasone Valerate), 1 APPLIC TP TID PRN for RASH, (Reported) Furosemide (Furosemide), 40 MG PO DAILY PRN for WT GAIN >2LB OR LEG SWELLING, (Reported) Lysine (l-Lysine), 500 MG PO BID PRN for COLD SORES, (Reported) Nitroglycerin (Nitroglycerin), 0.4 MG SL UD PRN for CHEST PAIN, (Reported) Tramadol HCl (Tramadol HCl), 50 MG PO Q6H PRN for PAIN-SEVERE (8-10), (Reported) Current Medications Current Medications Reviewed Review of Systems Constitutional: see HPI, dizziness, malaise, weakness EENTM: no symptoms reported Respiratory: no symptoms reported Cardiovascular: no symptoms reported Gastrointestinal: no symptoms reported Genitourinary: no symptoms reported Musculoskeletal: back pain, joint pain Skin: no symptoms reported Psychiatric/Neurological: No Symptoms Reported All Other Systems Reviewed Negative Unless Noted: Yes Physical Exam Physical Exam Vital Signs Vital Signs - First Documented 08/19/20 14:00 Temp 35.8 Pulse 92 Resp 22 B/P (MAP) 127/78 (94) Pulse Ox 99 O2 Delivery Room Air Capillary Refill : Height, Weight, BMI Height: '" Weight: lbs. oz. kg; BMI Method: General Appearance: No Apparent Distress, WD/WN, Chronically ill Eyes: Bilateral Eye Normal Inspection, Bilateral Eye PERRL HEENT: PERRL/EOMI, Normal ENT Inspection, Pharynx Normal Neck: Full Range of Motion, Normal Inspection, Non Tender, Supple, Carotid Bruit Respiratory: Chest Non Tender, Lungs Clear, Normal Breath Sounds, No Accessory Muscle Use, No Respiratory Distress Cardiovascular: Regular Rate, Rhythm, No Edema, No Gallop, No JVD, No Murmur, Normal Peripheral Pulses Gastrointestinal: Normal Bowel Sounds, No Organomegaly, No Pulsatile Mass, Non Tender, Soft Back: Normal Inspection, No CVA Tenderness, No Vertebral Tenderness Extremity: Normal Capillary Refill, Normal Inspection, Normal Range of Motion (left leg decreased ROM), Non Tender, No Calf Tenderness, No Pedal Edema Neurologic/Psychiatric: Alert, Oriented x3, No Motor/Sensory Deficits, geriatric nurse practitioner II- XII Norm as Tested, Abnormal Gait, Depressed Affect, Motor Weakness (left leg) Skin: Normal Color, Warm/Dry Lymphatic: No Adenopathy PM&R Medical Assessment & Plan REHAB/MEDICAL ASSESSMENT AND PLAN: REHAB IMPAIRMENT GROUP: Left hip replacement ETIOLOGIC DIAGNOSIS: Left hip replacement The comorbidities that impact the patients function and/or functional outcome by: advanced age, CAD, HTN, BPH, fall risk, anemia, ICU stay after OR REHAB PLAN: The patient is being admitted to our comprehensive inpatient rehabilitation facility and can tolerate the intensity of service consisting of at least: 180 minutes of therapy a day, 5 out of 7 days a week Rehab treatment will consist of: PT OT will focus on regaining function of left leg and increase ambulation and regain independence in ADL's in order to return to independent living The patient/family has a good understanding of our discharge process and will benefit from an interdisciplinary inpatient rehabilitation program. The patient has potential to make improvement and is in need of at least two of the following multidisciplinary therapies including but not limited to physical, occupational, speech, and prosthetics and orthotics. Additionally the patient will need services from respiratory, nutritional services, wound care, psychology, etc. (Customize this to each patient). Given the patients complex condition and risk of further medical complications, rehabilitation services cannot be safely or effectively provided at a lower level of care such as a detention facility. BARRIERS TO DISCHARGE: Advanced age and lives alone ESTIMATED LOS: 7 days DISPOSITION: Home RELEVANT CHANGES SINCE PREADMISSION SCREENING: I have compared the patients medical and functional status at the time of the preadmission screening and there are: no changes PROGNOSIS: Good REHABILITATION GOALS: 1. PT OT will focus on regaining function of left leg and increase ambulation and regain independence in ADL's in order to return to independent living All the above goals were reviewed with the patient and he/she is in agreement. By signing this document, I acknowledge that I have personally performed a full physical examination on this patient within 24 hours of admission to this inpatient rehabilitation facility and have determined the patient to be able to tolerate the above course of treatment at an intensive level for a reasonable period of time. I will be completing a detailed individualized Plan of Care for this patient by day #4 of the patients stay based upon the Preadmission Screen, the Post-Admission Evaluation, and the therapy evaluations. Admission Dx/Comorbidities: (1) Status post left hip replacement ICD Codes: Z96.642 - Presence of left artificial hip joint (2) CAD (coronary artery disease) ICD Codes: I25.10 - Atherosclerotic heart disease of teller coronary artery without angina pectoris (3) Hypertension ICD Codes: I10 - Essential (primary) hypertension (4) Hyperlipemia ICD Codes: E78.5 - Hyperlipidemia, unspecified (5) BPH (benign prostatic hyperplasia) ICD Codes: N40.0 - Benign prostatic hyperplasia without lower urinary tract symptoms (6) Anemia ICD Codes: D64.9 - Anemia, unspecified (7) GERD (gastroesophageal reflux disease) ICD Codes: K21.9 - Gastro-esophageal reflux disease without esophagitis Assessment/Plan Assessment and Plan Assess & Plan/Chief Complaint Assessment: s/p left total hip replacement Hypotension after surgery requiring ICU stay with transfusion CAD HTN HLP Anemia post op GERD BPH Plan: Pain control Home meds IRF protocol LYNDA MARSHALL DO Aug 19, 2020 17:36
[2020-08-19] MEDS ORDERED: NON-FORMULARY MEDICATION 1 EA EA (Lysine (l-Lysine) 500 MG) PO PRN (17:45)
[2020-08-19] MEDS ORDERED: RT-ALBUTEROL SULF 2.5 MG/3 ML PRE-MIX VIAL IH PRN (17:45)
[2020-08-19] MEDS ORDERED: [UNRECOGNIZED DRUG - OTHER] TOP SCH (17:45)
[2020-08-19] MEDS ORDERED: NITROGLYCERIN 0.4 MG SL TABS BTL 25'S SL PRN (17:45)
[2020-08-19] MEDS ORDERED: FUROSEMIDE 40 MG (LASIX) TAB PO PRN (17:45)
[2020-08-19] MEDS ORDERED: BETAMETHASONE VALERATE TP PRN (17:45)
[2020-08-19] MEDS ORDERED: BETAMETHASONE DIPRO (AUGMENTED) 0.05% CREAM 15 GM TOP PRN (19:45)
[2020-08-19 20:00] VITALS: BP 118/73
[2020-08-19] MEDS ORDERED: NON-FORMULARY MEDICATION 1 EA EA (Pravastatin Sodium 80 MG) PO SCH (21:00)
[2020-08-19] MEDS ORDERED: NON-FORMULARY MEDICATION 1 EA EA (Metoprolol Tartrate 50 MG) PO SCH (21:00)
[2020-08-19] MEDS ORDERED: SENNA W/DOCUSATE (SENOKOT S) TABLET PO SCH (21:00)
[2020-08-19] MEDS: polyethylene glycoL POWDER 17 GM (MIRALAX) PACK PO SCH (21:40)
[2020-08-19] MEDS: MUPIROCIN 2% OINT 22 GM (BACTROBAN) TUBE NSEACH SCH (21:40)
[2020-08-19] MEDS: DOCUSATE SODIUM 100 MG (COLACE) CAP PO SCH (21:40)
[2020-08-19] MEDS: SENNA W/DOCUSATE (SENOKOT S) TABLET PO SCH (21:40)
[2020-08-19] MEDS: RANOLAZINE ER 500 MG TAB (RANEXA) PO SCH (21:40)
[2020-08-19] MEDS: GABAPENTIN 100 MG (NEURONTIN) CAP PO SCH (21:41)
[2020-08-19] MEDS: TERAZOSIN 5 MG (HYTRIN) CAPSULE PO SCH (21:41)
[2020-08-19] MEDS: meTOprolol TARTRATE 50 MG (LOPRESSOR) TAB PO SCH (21:41)
[2020-08-19] MEDS: FAMOTIDINE 20 MG (PEPCID) TABLET PO SCH (21:42)
[2020-08-19] MEDS: ZINC OXIDE 16% OINT (BUTT PASTE) 57 GM TUBE TOP PRN (21:45)
[2020-08-20 05:30] LABS: BASOPHILS % (AUTO) 1 % (0-10); EOSINOPHILS # (AUTO) 0.5 10^3/uL (0.0-0.3); EOSINOPHILS % (AUTO) 6 % (0-10); HEMATOCRIT 26 % (40-54); HEMOGLOBIN 8.4 g/dL (13.3-17.7); LYMPHOCYTES # (AUTO) 1.2 10^3/uL (1.0-4.0); LYMPHOCYTES % (AUTO) 14 % (12-44); MEAN CORPUSCULAR HEMOGLOBIN 33 pg (25-34); MEAN CORPUSCULAR HGB CONC 32 g/dL (32-36); MEAN CORPUSCULAR VOLUME 101 fL (80-99); MEAN PLATELET VOLUME 10.3 fL (9.0-12.2); MONOCYTES # (AUTO) 0.8 10^3/uL (0.0-1.0); MONOCYTES % (AUTO) 9 % (0-12); NEUTROPHILS # (AUTO) 5.8 10^3/uL (1.8-7.8); NEUTROPHILS % (AUTO) 69 % (42-75); PLATELET COUNT 310 10^3/uL (130-400); WHITE BLOOD COUNT 8.4 10^3/uL (4.3-11.0)
[2020-08-20 05:46] LABS: POTASSIUM 4.3 MMOL/L (3.6-5.0)
[2020-08-20 05:47] LABS: CALCIUM 8.5 MG/DL (8.5-10.1)
[2020-08-20 05:48] LABS: TOTAL PROTEIN 5.5 GM/DL (6.4-8.2)
[2020-08-20 05:52] LABS: CREATININE SERUM 1.21 MG/DL (0.60-1.30)
[2020-08-20] MEDS: MULTIVIT W/MINERALS TAB (THERAGRAN M) PO SCH (06:10)
[2020-08-20 08:00] VITALS: BP 105/66
--- NOTE | 2020-08-20 08:57 | PM&R Progress Note ---
Subjective HPI/CC On Admission Date Seen by Provider: Aug 20, 2020 Time Seen by Provider: 09:00 Subjective/Events-last exam 08/20/20: Pt doing a lot better Hgb 8.4 Iron pending 2 liters of oxygen at night Crackles in his lungs, will get an IS for him to use and he does report that is chronic Review of Systems General: Fatigue, Malaise Musculoskeletal: leg pain Objective Exam Vital Signs Vital Signs Date Time Temp Pulse Resp B/P (MAP) Pulse Ox O2 Delivery O2 Flow Rate FiO2 08/20/20 21:00 Room Air 08/20/20 20:00 36.0 88 16 109/65 (80) 96 Capillary Refill : General Appearance: No Apparent Distress, WD/WN, Chronically ill HEENT: PERRL/EOMI, Normal ENT Inspection, Pharynx Normal Neck: Full Range of Motion, Normal Inspection, Non Tender, Supple, Carotid Bruit Respiratory: Chest Non Tender, No Accessory Muscle Use, No Respiratory Distress, Crackles Cardiovascular: Regular Rate, Rhythm, No Edema, No Gallop, No JVD, No Murmur, Normal Peripheral Pulses Gastrointestinal: Normal Bowel Sounds, No Organomegaly, No Pulsatile Mass, Non Tender, Soft Back: Normal Inspection, No CVA Tenderness, No Vertebral Tenderness Extremity: Normal Capillary Refill, Normal Inspection, Normal Range of Motion (left leg decreased ROM), Non Tender, No Calf Tenderness, No Pedal Edema Neurologic/Psychiatric: Alert, Oriented x3, No Motor/Sensory Deficits, spring tacker II- XII Norm as Tested, Abnormal Gait, Depressed Affect, Motor Weakness (left leg) Skin: Normal Color, Warm/Dry Lymphatic: No Adenopathy Results/Procedures Lab Patient resulted labs reviewed. FIM Transfers Therapy Code Descriptions/Definitions Functional [place] Measure: 0=Not Assessed/NA 4=Minimal Assistance 1=Total Assistance 5=Supervision or Setup 2=Maximal Assistance 6=Modified [place] 3=Moderate Assistance 7=Complete IndependenceSCALE: Activities may be completed with or without assistive devices. 2-Rqxeirkwfu-pmlavgz completes the activity by him/herself with no assistance fr om a helper. 5-Set-up or Clean-up Assistance-helper sets up or cleans up; patient completes activity. [place] assists only prior to or following the activity. 4-Supervision or Touching Assistance-helper provides verbal cues and/or touching/steadying and/or contact guard assistance as patient completes activity. Assistance may be provided throughout the activity or intermittently. 3-Partial/Moderate Assistance-helper does LESS THAN HALF the effort. [place] lifts, holds or supports trunk or limbs, but provides less than half the effort. 2-Substantial/Maximal Assistance-helper does MORE THAN HALF the effort. [place] lifts or holds trunk or limbs and provides more than half the effort. 1-Soxwrftoh-clwiyo does ALL the effort. Patient does none of the effort to complete the activity. Or, the assistance of 2 or more helpers is required for the patient to complete the activity. If activity was not attempted, code reason: 7-Patient Refused. 9-Not Applicable-not attempted and the patient did not perform the activity before the current illness, exacerbation or injury. 10-Not Attempted due to Environmental Limitations-(lack of equipment, weather restraints, etc.). 88-Not Attempted due to Medical Conditions or Safety Concerns. Roll Left to Right (QC): 4 Sit to Lying (QC): 3 (assist with left LE) Sit to Stand (QC): 4 Chair/Ick-uc-Zvthf Xfer(QC): 4 Car Transfer (QC): 3 (asssit wth left LE) Gait Training Does the Patient Walk?: Yes Distance: 120' x2 Walk 10 feet (QC): 4 Walk 50 ft with 2 Turns(QC): 4 Walk 150 ft (QC): 4 Walking 10ft/uneven surface-QC: 3 (min assist for balance/safety) Gait Assistive Device: FWW Wheelchair Training Does the Pt Use a Wheelchair?: No Wheel 50 ft with 2 turns (QC): 9 Wheel 150 ft (QC): 9 Stair Training 1 Step (curb) (QC): 3 4 Steps (QC): 88 12 Steps (QC): 88 Balance Picking up an Object (QC): 88 ADL-Treatment Eating (QC): 6 (per pt report) Oral Hygiene (QC): 6 (IND standing at sink.) Shower/Bathe Self (QC): 3 (Min A with LEs. Pt able to wash/dry all other parts with SBA in stand at GBs) Upper Body Dressing (QC): 5 (set up) Lower Body Dressing (QC): 4 (SBA, pt able to use AE to doff/don LE clothing, education on AE with min cues during task.) On/Off Footwear (QC): 3 (Min A doffing/donning LLE footwear. Pt able to complete RLE.) Toileting Hygiene (QC): 4 (SBA, pt able to manage clothing and perform hygiene.) Assessment/Plan Assessment and Plan Assess & Plan/Chief Complaint Assessment: s/p left total hip replacement Hypotension after surgery requiring ICU stay with transfusion CAD HTN HLP Anemia post op iron deficiency GERD BPH Plan: Pain control Home meds IRF protocol 08/20/20: Monitor lungs IS Pain control 08/20/20: Monitor closely Pain control Await iron level (1) Status post left hip replacement (2) CAD (coronary artery disease) (3) Hypertension (4) Hyperlipemia (5) BPH (benign prostatic hyperplasia) (6) Anemia (7) GERD (gastroesophageal reflux disease) LYNDA MARSHALL DO Aug 20, 2020 08:57
--- NOTE | 2020-08-20 08:57 | Occupational Ther Daily Note ---
OT Current Status-Daily Note Subjective Pt seated upright in recliner, agreeable to OT Tx. 3/10 pain in L hip. Mental Status/Objective Patient Orientation: Person, Place, Time, Situation ADL-Treatment Therapy Code Descriptions/Definitions Functional [place] Measure: 0=Not Assessed/NA 4=Minimal Assistance 1=Total Assistance 5=Supervision or Setup 2=Maximal Assistance 6=Modified [place] 3=Moderate Assistance 7=Complete IndependenceSCALE: Activities may be completed with or without assistive devices. 6-Xviaphqfpv-kwtirzh completes the activity by him/herself with no assistance from a helper. 5-Set-up or Clean-up Assistance-helper sets up or cleans up; patient completes activity. [place] assists only prior to or following the activity. 4-Supervision or Touching Assistance-helper provides verbal cues and/or touching/steadying and/or contact guard assistance as patient completes activity. Assistance may be provided throughout the activity or intermittently. 3-Partial/Moderate Assistance-helper does LESS THAN HALF the effort. [place] lifts, holds or supports trunk or limbs, but provides less than half the effort. 2-Substantial/Maximal Assistance-helper does MORE THAN HALF the effort. [place] lifts or holds trunk or limbs and provides more than half the effort. 0-Kgqxqnvce-tregvx does ALL the effort. Patient does none of the effort to complete the activity. Or, the assistance of 2 or more helpers is required for the patient to complete the activity. If activity was not attempted, code reason: 7-Patient Refused. 9-Not Applicable-not attempted and the patient did not perform the activity before the current illness, exacerbation or injury. 10-Not Attempted due to Environmental Limitations-(lack of equipment, weather restraints, etc.). 88-Not Attempted due to Medical Conditions or Safety Concerns. Oral Hygiene (QC): 6 (IND standing at sink.) Upper Body Dressing (QC): 5 (set up) Lower Body Dressing (QC): 4 (SBA, pt able to use AE to doff/don LE clothing, education on AE with min cues during task.) Other Treatment Pt seated in recliner, used FWW to ambulate into bathroom and to sink, SBA. Pt stood at sink to complete oral care and shaving independently. He returned to recliner where he changed clothes. OT educated pt on AE for LE dressing, pt able to doff/don pants and brief using AE with min verbal cues. Pt then used FWW to ambulate in ARU common area and kitchen area. Pt able to open cabinet doors overhead and drawers at waist level. OT educated pt about staying within the walker and squaring up to the counter. He verbalized and demo'd understanding. Pt returned to his room using FWW, SBA, transferring to recliner. Post tx, pt seated in recliner, call light in reach and all needs met. Education OT Patient Education: Correct positioning, Modified ADL techniques, Progress toward Goal/Update tx plan, Purpose of tx/functional activities Teaching Recipient: Patient Teaching Methods: Discussion Response to Teaching: Verbalize Understanding OT Short Term Goals Short Term Goals Time Frame: Aug 28, 2020 Lower body dressin Putting on/taking off footwear: 4 OT Aviation Maintenance Technician Goals Residential Goals Time Frame: September 06, 2020 Eating (QC): 6 Oral Hygiene (QC): 6 Toileting Hygiene (QC): 6 Shower/Bathe Self (QC): 6 Upper Body Dressing (QC): 6 Lower Body Dressing (QC): 6 On/Off Footwear (QC): 6 Additional Goals: 1-Demonstrate ADL Tasks, 2-Verbalize Understanding, 3- ImproveStrength/Leonela 1=Demonstrate adherence to instructed precautions during ADL tasks. 2=Patient will verbalize/demonstrate understanding of assistive devices/modifications for ADL. 3=Patient will improve strength/tolerance for activity to enable patient to perform ADL's. OT Education/Plan Problem List/Assessment Assessment: Decreased Activ Tolerance, Decreased UE Strength, Impaired I ADL's, Impaired Self-Care Skills Discharge Recommendations Plan/Recommendations: Continue POC Treatment Plan/Plan of Care Patient would benefit from OT for education, treatment and training to promote independence in ADL's, mobility, safety and/or upper extremity function for ADL's. Plan of Care: ADL Retraining, Functional Mobility, Group Exercise/Act as Ind, UE Funct Exercise/Act Treatment Duration: September 06, 2020 Frequency: At least 5 of 7 days/Wk (IRF) Estimated Hrs Per Day: 1.5 hours per day Rehab Potential: Good Time/GCodes Start Time: 08:00 Stop Time: 09:00 Total Time Billed (hr/min): 60 Billed Treatment Time 1, ADL 3 (45'), FA (15') MILLIE BRANCH OT Aug 20, 2020 08:57
--- NOTE | 2020-08-20 08:57 | Individualized Plan of Care ---
Individualized Plan of Care Rehab Nursing IPOC Order Admission Date Aug 19, 2020 at 14:10 Current Orders Orders Admission Order(Inpt,Obs,Sdc) (08/19/20 12:30) Vital Signs: Per Unit Policy ( 08,16,00 (08/19/20 12:30) Obstetric Assistant-Inpt Rehab Con (08/19/20 12:30) Rehab Nursing Orders-Ipoc (08/19/20 12:30) Physical Therapy Rehab Orders (08/19/20 12:30) Occupational Therapy Rehab Ord (08/19/20 12:30) Speech Therapy Rehab Orders (08/19/20 12:30) Cbc With Automated Diff (08/20/20 06:00) Comprehensive Metabolic Panel (08/20/20 06:00) Precautions (Aru) (08/19/20 12:30) Rehab-Intensity Of Therapy (08/19/20 12:30) Initiate Admission Nursing Pro .admission (08/19/20 12:30) Alprazolam Tablet (Xanax Tablet) (08/19/20 12:30) Calcium Carbonate Chew Tablet (Antacid C (08/19/20 12:30) Diphenhydramine Tablet (Benadryl Tablet) (08/19/20 12:30) Docusate Sodium Capsule (Colace Capsule) (08/19/20 21:00) Docusate Sodium Capsule (Colace Capsule) (08/19/20 12:30) Bisacodyl Suppository (Dulcolax Supposit (08/19/20 12:30) Lactulose Oral Solution (Enulose Oral So (08/19/20 12:30) Na Phos/Na Biphos Enema (Fleet Enema Sánchez (08/19/20 12:30) Guaifenesin/Codeine Syrup (Robitussin Ac (08/19/20 12:30) Loperamide Tablet (Imodium Tablet) (08/19/20 12:30) Melatonin Tablet (Melatonin Tablet) (08/19/20 12:30) Polyethylene Glycol Powder Pkt (Miralax (08/19/20 21:00) Ondansetron Oral Dissolve Tab (Zofran (08/19/20 12:30) Senna S Tablet (Senokot S Tablet) (08/19/20 21:00) Initiate Admission Nursing Pro .admission (08/19/20 12:30) Code/Resuscitation (08/19/20 12:30) Sequential Compression Device .admit (08/19/20 12:30) Transfer - Bed/Room/Location (08/19/20 14:35) Admission Arrival Bed Request (08/19/20 14:10) Albuterol Pre-Mix Nebs (Rt) (Proventil (08/19/20 17:45) Aspirin Enteric Coated Tablet (Ecotrin T (08/20/20 09:00) Cholecalciferol Capsule/Tablet (Vitamin (08/20/20 09:00) Clopidogrel Tablet (Plavix Tablet) (08/20/20 09:00) Cyanocobalamin Tablet (Vitamin B-12 Tabl (08/20/20 09:00) Famotidine Tablet (Pepcid Tablet) (08/19/20 21:00) Folic Acid Tablet (Folic Acid Tablet) (08/20/20 09:00) Furosemide Tablet (Lasix Tablet) (08/19/20 17:45) Gabapentin Capsule/Tablet (Neurontin Cap (08/19/20 21:00) Isosorbide Mononitrate Tablet (Imdur Tab (08/20/20 09:00) Mupirocin Ointment (Bactroban Ointment (08/19/20 21:00) Nitroglycerin 0.4 Mg Btl 25's (Nitrostat (08/19/20 17:45) Ranolazine Er Tablet (Ranexa Er Tablet) (08/19/20 21:00) Senna S Tablet (Senokot S Tablet) (08/19/20 21:00) Terazosin Capsule (Hytrin Capsule) (08/19/20 21:00) Tramadol Tablet (Ultram Tablet) (08/19/20 17:45) (Nf) Betamethasone Valerate (08/19/20 17:45) (Nf) Esomeprazole Magnesium (Nexium) (08/20/20 09:00) (Nf) Fenofibrate Nanocrystallized (Trico (08/20/20 09:00) (Nf) Lysine (L-Lysine) (08/19/20 17:45) (Nf) Metoprolol Tartrate (08/19/20 21:00) (Nf) Multivits,Ca,Minerals/Iron/Fa (Ther (08/20/20 09:00) (Nf) Pravastatin Sodium (08/19/20 21:00) (Nf) [Hydrophilic Dressing] (08/19/20 17:45) Therapeutic Multivitamin Tab (Vitamins, (08/20/20 07:00) Metoprolol Tartrate (Ir) Tab (Lopressor (08/19/20 21:00) Pantoprazole Tablet (Protonix Tablet) (08/20/20 09:00) General/Regular (08/19/20 Dinner) Atorvastatin Tablet (Lipitor Tablet) (08/19/20 21:00) Fenofibrate,Micronized Capsule (Lofibra (08/20/20 09:00) Oxygen Delivery Set Up (08/19/20 18:27) Oxygen-Administer 07,19 (08/19/20 18:27) Oxygen Delivery Set Up (08/19/20 18:27) Zinc Oxide 16% (Butt Paste) (08/19/20 19:00) Pastoral Consult (08/19/20 19:01) Betamethasone Dipropinate Crm (Diprolene (08/19/20 19:45) Iron Test (Fe) (08/20/20 05:59) Acetaminophen Tablet/Caplet (Tylenol T (08/20/20 09:30) Incentive Spirometry (Nursing) Q2H (08/20/20 09:27) Patient Visit (08/20/20 ) Speech Sound Lang Comp (08/20/20 ) Treat. Speech/Lang/Voice (08/20/20 ) Patient Visit (08/20/20 ) Exercise Therap, Ea 15 Min (08/20/20 ) Gait Training, Ea 15 Min (08/20/20 ) Functional Activities, Ea 15 (08/20/20 ) Iron Sucrose Injection (Venofer Injectio (08/21/20 09:00) Rehab Nursing Orders: Ongoing Assess. of Function Status, Bladder Management, Bladder Scan, Bladder Training, Bowel Management, Bowel Training, Disease Management & Educaiton, DVT Prophylaxis, Fall Prevention, Fluid/Electrolyte/Nutrition Mgmt, Infection Prevention, Medication Management & Education, Management of Risks & Complications, Nutrition Management, Pain Management, Patient/Family Support, Safety Management Intensity of Therapy to be met Patient to be seen: Min.3h per day/5 of 7d PT IPOC Problem List: Activity Tolerance, Functional Strength, Safety, Balance, Gait, Transfer, Bed Mobility, ROM Treatment Plan: Continue Plan of Care Bed Mobility, Education, Functional Activity Leonela, Functional Strength, Group Therapy, Gait, Safety, Therapeutic Exercise, Transfers Treatment Duration: September 04, 2020 Frequency: At least 5 of 7 days/Wk (IRF) Estimated Hrs Per Day: 1.5 hours per day OT IPOC Problems: Decreased Activ Tolerance, Decreased UE Strength, Impaired I ADL's, Impaired Self-Care Skills OT Treatment, Training and Edu: Yes Plan of Care: ADL Retraining, Functional Mobility, Group Exercise/Act as Ind, UE Funct Exercise/Act Treatment Duration: September 06, 2020 Frequency: At least 5 of 7 days/Wk (IRF) Estimated Hrs Per Day: 1.[address] IPOC Speech Therapy Treatment Plan: Discontinue ST Treatment Duration: Aug 20, 2020 Frequency: Modified Program (IRF) Estimated Hrs Per Day: Other Obstetric Assistant/Case Mgmt Obstetric Assistant/Case Managemen: Discharge Planning Dietitian/Library Consultant Dietitian/Library Consultant to monitor nutritional status and make changes and/or recommendations as needed and work with speech pathology on dietary upgrades as the occur. Physician IPOC Medical Issues being managed closely and that require the 24 hour availability of a physician: Recent hip replacement with ICU stay due to hypotension and blood transfusion will require close monitoring of risk factors for decompensation Medical Issues: Bowel/Bladder Function, DVT Prophylaxis, Falls Precautions, Fluid/Electrolyte/Nutrition Balance, Infection Protection, Pain Management Brief Synthesis of Preadmission Screen, Post-Admission Evaluation, and Therapy Evaluations: PT OT will focus on regaining ambulation and fall risk prevention and increase independence in ADL's Medical Prognosis: Good Anticipated Length of Stay: 7 days LYNDA MARSHALL DO Aug 20, 2020 08:57
[2020-08-20] MEDS ORDERED: NON-FORMULARY MEDICATION 1 EA EA (Fenofibrate Nanocrystallized (Tricor) 145 MG) PO SCH (09:00)
[2020-08-20] MEDS ORDERED: IRON PO SCH (09:00)
[2020-08-20] MEDS ORDERED: MULTIVITS CA MINERALS PO SCH (09:00)
[2020-08-20] MEDS: MUPIROCIN 2% OINT 22 GM (BACTROBAN) TUBE NSEACH SCH (09:00)
[2020-08-20] MEDS ORDERED: [UNRECOGNIZED DRUG - OTHER] PO SCH (09:00)
[2020-08-20] MEDS ORDERED: NON-FORMULARY MEDICATION 1 EA EA (Esomeprazole Magnesium (Nexium) 40 MG) PO SCH (09:00)
[2020-08-20] MEDS: FENOFIBRATE 134 MG (LOFIBRA) CAPSULE PO SCH (09:20)
[2020-08-20] MEDS: RANOLAZINE ER 500 MG TAB (RANEXA) PO SCH ×2 (09:20→20:32)
[2020-08-20] MEDS: FOLIC ACID 1 MG TAB PO SCH (09:21)
[2020-08-20] MEDS: CLOPIDOGREL 75 MG (PLAVIX) TABLET PO SCH (09:21)
[2020-08-20] MEDS: GABAPENTIN 100 MG (NEURONTIN) CAP PO SCH ×2 (09:21→20:32)
[2020-08-20] MEDS: PANTOPRAZOLE 40 MG (PROTONIX) TAB PO SCH (09:21)
[2020-08-20] MEDS: ASPIRIN E.C. 81 MG (ECOTRIN) TAB PO SCH (09:21)
[2020-08-20] MEDS: ISOSORBIDE MONONITRATE 30 MG (IMDUR) TAB PO SCH (09:21)
[2020-08-20] MEDS: VITAMIN D3 125 MCG (5,000 UNITS) CAPSULE PO SCH (09:21)
[2020-08-20] MEDS: meTOprolol TARTRATE 50 MG (LOPRESSOR) TAB PO SCH ×2 (09:21→20:32)
[2020-08-20] MEDS: CYANOCOBALAMIN 1,000 MCG (VITAMIN B-12) TABLET PO SCH (09:21)
[2020-08-20] MEDS: DOCUSATE SODIUM 100 MG (COLACE) CAP PO SCH ×2 (09:23→20:34)
[2020-08-20] MEDS: polyethylene glycoL POWDER 17 GM (MIRALAX) PACK PO SCH ×2 (09:23→20:34)
[2020-08-20] MEDS: SENNA W/DOCUSATE (SENOKOT S) TABLET PO SCH ×2 (09:24→20:34)
[2020-08-20] MEDS: ACETAMINOPHEN 325 MG TABLET PO PRN ×2 (09:31→18:15)
--- NOTE | 2020-08-20 10:10 | ST Cognitive Linguistic Eval ---
Speech Evaluation-General Medical Diagnosis L DENISA Onset Date: Aug 12, 2020 Therapy Diagnosis Therapy Diagnosis: Cognitive communication Precautions Precautions: Fall, Hip Precautions/Isolations: Fall Prevention Referral Referring Physician: Dr. Sales Medical History Pertinent Medical History: Arthritis, CABG, CAD, CVA, GERD, HTN Reviewed History: Yes Social History Current Living Status: Alone Speech PLF-Current Status Prior Level of Function Patient lived home alone and was independent for his daily needs. Subjective Pt was alert and pleasant. Pt agreed to ST evaluation. Language Eval: Auditory Comprehends Simple Yes/No Ques: Functional Indent/Objects [place]: Functional Ident/Pics in [place]: Functional Follows 1-Step Commands: Mild Follows Complex Directions: Moderate Follows General Conversations: Functional Language Eval: Verbal Language Completes Spontaneous Greeting: Functional Produces Auto, Serial Info: Mild Imitates Simple Words/Phrases: Functional Word Finding: Functional Requests Basic Needs: Functional States Basic Personal Info: Functional Expresses Complex Ideas: Mild Language Evaluation: Reading Comprehends Single Nouns: Functional Follows Simple Written Direct: Mild Comprehends Multiple Sentences: Functional Cognitive Patient Orientation Pt was oriented to day of the week, year, and location. He could state why he was admitted to the ARU. Objective Cognitive Domain Attention: WNL Memory: WNL Problem Solving: Moderate Executive Functions: WNL Visuospatial Skills: WNL Composite Severity Rating: Mild Objective Formal/Standardized Tests [facility] Mental Status Examination (UMS) Results Oral Motor/Speech Production Within normal limits Impression Pt is a pleasant 80 y/o man admitted to the ARU s/p hip replacement. Pt agreed to ST cognitive-communication evaluation. Pt was administered the SLUMS and scored within the limits of mild neurocognitive disorder. ST services are warra nt and will commence 4-5x per week for 30 min increments until d/c with focus on safety and cognitive improvement. Speech Patient Assess Expression of Ideas/Wants: Expression (4) Understanding Verbal Content: Sometimes Understands(2) Brief Interview-Mental Status: Yes Repetition of Three Words: Two (2) Temporal Orientation: Year: Correct (3) Temporal Orientation: Month: Accurate within 5 days(2) Temporal Orientation: Day: Incorrect or No Answer(0) Recall : Wear to say "Sock": Yes,after cueing (1) Recall : Color: Yes, after cueing (1) Recall : Bed: Yes,after cueing (1) Memory/Recall Ability: Current season, That he or she is in a hsp/hsp unit Speech Short Term Goals Short Term Goals Short Term Goals 1.) Patient will complete memory tasks related to daily needs with 90% or greater with minimal cues. 2.) Patient will complete problem solving tasks related to daily needs with 90% or greater with minimal cues. 3.) Patient will complete safety awareness tasks related to daily needs with 90% or greater with minimal cues. Speech [place] Shearer Operator Goals Correction Goals Patient will improve cognitive-communication skills necessary for safety and daily living tasks with minimal assist. Speech-Plan Patient/Family Goals Patient/Family Goals: Pt plans to return home upon d/c from ARU. Treatment Plan Speech Therapy Treatment Plan: Continue Plan of Care Treatment Duration: Aug 30, 2020 Frequency: 4 times per week (4-5x per week) Estimated Hrs Per Day: .5 hour per day Rehab Potential: Good Barriers to Learning: medical status and age Pt/Family Agrees to Plan: Yes Safety Risks/Education Teaching Recipient: Patient Teaching Methods: Discussion Response to Teaching: Verbalize Understanding, Reinforcement Needed Education Topics Provided: Safety and compensatory cognitive communication strategies Time Speech Therapy Time In: 09:30 Speech Therapy Time Out: 10:00 Total Billed Time: 30 Billed Treatment Time 1, SHALOM CHOW B[facility]AN[facility] ST Aug 20, 2020 10:10
--- NOTE | 2020-08-20 11:14 | Occupational Ther Daily Note ---
OT Current Status-Daily Note Subjective Pt seated in recliner, agreeable to OT tx. Reports 0/10 pain in his hip. He indicates fatigue from therapy this AM. Mental Status/Objective Patient Orientation: Person, Place, Time, Situation ADL-Treatment Therapy Code Descriptions/Definitions Functional [place] Measure: 0=Not Assessed/NA 4=Minimal Assistance 1=Total Assistance 5=Supervision or Setup 2=Maximal Assistance 6=Modified [place] 3=Moderate Assistance 7=Complete IndependenceSCALE: Activities may be completed with or without assistive devices. 0-Yextwztlvp-kcvmbat completes the activity by him/herself with no assistance from a helper. 5-Set-up or Clean-up Assistance-helper sets up or cleans up; patient completes activity. [place] assists only prior to or following the activity. 4-Supervision or Touching Assistance-helper provides verbal cues and/or touching/steadying and/or contact guard assistance as patient completes activity. Assistance may be provided throughout the activity or intermittently. 3-Partial/Moderate Assistance-helper does LESS THAN HALF the effort. [place] lifts, holds or supports trunk or limbs, but provides less than half the effort. 2-Substantial/Maximal Assistance-helper does MORE THAN HALF the effort. [place] lifts or holds trunk or limbs and provides more than half the effort. 3-Bnznvqqdx-kfwdyh does ALL the effort. Patient does none of the effort to complete the activity. Or, the assistance of 2 or more helpers is required for the patient to complete the activity. If activity was not attempted, code reason: 7-Patient Refused. 9-Not Applicable-not attempted and the patient did not perform the activity before the current illness, exacerbation or injury. 10-Not Attempted due to Environmental Limitations-(lack of equipment, weather restraints, etc.). 88-Not Attempted due to Medical Conditions or Safety Concerns. Other Treatment Pt seated in recliner, used FWW to ambulate to therapy gym, SBA. In order to increase BUE strength and functional endurance, pt completed x15 mins on arm bike, rest breaks as needed. He then returned to his room using FWW, SBA. Post tx, pt seated in recliner, call light in reach and all needs met. Education OT Patient Education: Correct positioning, Energy conservation, Exercise program, Modified ADL techniques, Progress toward Goal/Update tx plan, Purpose of tx/functional activities Teaching Recipient: Patient Teaching Methods: Discussion Response to Teaching: Verbalize Understanding OT Short Term Goals Short Term Goals Time Frame: Aug 28, 2020 Lower body dressin Putting on/taking off footwear: 4 OT Skilled Nursing Goals Ep[employer]axial Reactor Technician Goals Time Frame: September 06, 2020 Eating (QC): 6 Oral Hygiene (QC): 6 Toileting Hygiene (QC): 6 Shower/Bathe Self (QC): 6 Upper Body Dressing (QC): 6 Lower Body Dressing (QC): 6 On/Off Footwear (QC): 6 Additional Goals: 1-Demonstrate ADL Tasks, 2-Verbalize Understanding, 3- ImproveStrength/Leonela 1=Demonstrate adherence to instructed precautions during ADL tasks. 2=Patient will verbalize/demonstrate understanding of assistive devices/modifications for ADL. 3=Patient will improve strength/tolerance for activity to enable patient to perform ADL's. OT Education/Plan Problem List/Assessment Assessment: Decreased Activ Tolerance, Decreased UE Strength, Impaired I ADL's, Impaired Self-Care Skills Discharge Recommendations Plan/Recommendations: Continue POC Treatment Plan/Plan of Care Patient would benefit from OT for education, treatment and training to promote independence in ADL's, mobility, safety and/or upper extremity function for ADL's. Plan of Care: ADL Retraining, Functional Mobility, Group Exercise/Act as Ind, UE Funct Exercise/Act Treatment Duration: September 06, 2020 Frequency: At least 5 of 7 days/Wk (IRF) Estimated Hrs Per Day: 1.5 hours per day Rehab Potential: Good Time/GCodes Start Time: 11:00 Stop Time: 11:30 Total Time Billed (hr/min): 30 Billed Treatment Time 1, EX 2 MILLIE BRANCH OT Aug 20, 2020 11:14
--- NOTE | 2020-08-20 11:30 | Physical Therapy Daily Note ---
PT Daily Note-Current Subjective Patient reported 2/10 hip pain pre tx, and was seated in recliner. Patient consented to therapy. Appearance Patient upright in recliner, with call button within reach and tray positioned in front. Mental Status Patient Orientation: Person, Place, Time, Normal For Age Transfers SCALE: Activities may be completed with or without assistive devices. 6-Zpwgwyaeue-gkhrhaj completes the activity by him/herself with no assistance from a helper. 5-Set-up or Clean-up Assistance-helper sets up or cleans up; patient completes activity. [place] assists only prior to or following the activity. 4-Supervision or Touching Assistance-helper provides verbal cues and/or touching/steadying and/or contact guard assistance as patient completes acti vity. Assistance may be provided throughout the activity or intermittently. 3-Partial/Moderate Assistance-helper does LESS THAN HALF the effort. [place] lifts, holds or supports trunk or limbs, but provides less than half the effort. 2-Substantial/Maximal Assistance-helper does MORE THAN HALF the effort. [place] lifts or holds trunk or limbs and provides more than half the effort. 7-Wvoogxxnc-kgvmwa does ALL the effort. Patient does none of the effort to complete the activity. Or, the assistance of 2 or more helpers is required for the patient to complete the activity. If activity was not attempted, code reason: 7-Patient Refused. 9-Not Applicable-not attempted and the patient did not perform the activity before the current illness, exacerbation or injury. 10-Not Attempted due to Environmental Limitations-(lack of equipment, weather restraints, etc.). 88-Not Attempted due to Medical Conditions or Safety Concerns. Sit to Stand (QC): 5 Chair/Sdq-qa-Muijt Xfer(QC): 5 Toilet Transfer (QC): 5 Patient steady with all transfers. Patient demonstrated good descending control with toilet transfer. Gait Training Does the Patient Walk?: Yes Distance: 150'x2, 100' Walk 10 feet (QC): 5 Walk 50 ft with 2 Turns(QC): 5 Walk 150 ft (QC): 5 Gait Assistive Device: FWW 1 rest break required after 150', patient demonstrated occasional step to gait pattern secondary to hip pain. Patient showed no LOB and was steady with gait with fair pacing. Exercises NuStep Minutes: 12 NuStep Workload: 3 Treatments Balance - evaluated patient balance by administering tinetti assessment tool for patient fall risk. Patient scored 22, but with additional overall assessment of balance with functional transfers, including toileting, patient was deemed appropriate to be independent in room to use restroom without nursing assistance. Nurse and patient were both notified. Patient instructed to continue to always use the walker when ambulating in room, patient reported good understanding and consented. Assessment Current Status: Fair Progress Patient has good overall balance with functional mobility, will benefit from improved functional endurance with activity. PT Short Term Goals Short Term Goals Time Frame: Aug 26, 2020 Sit to lyin Lying to sitting on side of be: 5 Walk 150 feet: 5 4 steps: 4 PT Vice President [employer] Communications Goals Nursing Home Goals PT Nursing Home Goals Time Frame: September 04, 2020 Roll Left & Right (QC): 6 Sit to Lying (QC): 6 Lying-Sitting on Side/Bed(QC): 6 Sit to Stand (QC): 6 Chair/Zgq-cn-Jkhxv Xfer(QC): 6 Toilet Transfer (QC): 6 Car Transfer (QC): 6 Does the Patient Walk: Yes Walk 10 feet (QC): 6 Walk 50ft with 2 Turns (QC): 6 Walk 150 ft (QC): 6 Walking 10ft on Uneven Surface: 6 1 Step (curb) (QC): 6 4 Steps (QC): 6 12 Steps (QC): 6 Picking up an Object (QC): 4 Does the Pt use WC or Scooter?: No Wheel 50 feet with 2 turns (QC: 9 Wheel 150 feet: 9 PT Plan Problem List Problem List: Activity Tolerance, Functional Strength, Safety, Balance, Gait, Transfer, Bed Mobility, ROM Treatment/Plan Treatment Plan: Continue Plan of Care Treatment Plan: Bed Mobility, Education, Functional Activity Leonela, Functional Strength, Group Therapy, Gait, Safety, Therapeutic Exercise, Transfers Treatment Duration: September 04, 2020 Frequency: At least 5 of 7 days/Wk (IRF) Estimated Hrs Per Day: 1.5 hours per day Patient and/or Family Agrees t: Yes Safety Risks/Education Patient Education: Gait Training, Transfer Techniques, Correct Positioning, Safety Issues Teaching Recipient: Patient Teaching Methods: Demonstration, Discussion Response to Teaching: Verbalize Understanding, Return Demonstration Time/GCodes Time In: 1000 Time Out: 1100 Total Billed Treatment Time: 60 Total Billed Treatment 1 visit: EX x2: 30' GT: 15' FA: 15' LUZ BOYD PT Aug 20, 2020 11:30
[2020-08-20] MEDS: ZINC OXIDE 16% OINT (BUTT PASTE) 57 GM TUBE TOP PRN (11:43)
--- NOTE | 2020-08-20 15:04 | Physical Therapy Daily Note ---
PT Daily Note-Current Subjective Patient reported mild, unrated hip pain pre tx, was sitting in recliner, consented to therapy. Appearance Patient seated upright in recliner, legs elevated, all needs met post tx. Mental Status Patient Orientation: Person, Place, Time, Normal For Age Transfers SCALE: Activities may be completed with or without assistive devices. 5-Dlzwurxtxq-mfnjoxu completes the activity by him/herself with no assistance from a helper. 5-Set-up or Clean-up Assistance-helper sets up or cleans up; patient completes activity. [place] assists only prior to or following the activity. 4-Supervision or Touching Assistance-helper provides verbal cues and/or touching/steadying and/or contact guard assistance as patient completes activity. Assistance may be provided throughout the activity or intermittently. 3-Partial/Moderate Assistance-helper does LESS THAN HALF the effort. [place] lifts, holds or supports trunk or limbs, but provides less than half the effort. 2-Substantial/Maximal Assistance-helper does MORE THAN HALF the effort. [place] lifts or holds trunk or limbs and provides more than half the effort. 9-Deqjfpanz-tmfutj does ALL the effort. Patient does none of the effort to complete the activity. Or, the assistance of 2 or more helpers is required for the patient to complete the activity. If activity was not attempted, code reason: 7-Patient Refused. 9-Not Applicable-not attempted and the patient did not perform the activity before the current illness, exacerbation or injury. 10-Not Attempted due to Environmental Limitations-(lack of equipment, weather restraints, etc.). 88-Not Attempted due to Medical Conditions or Safety Concerns. Sit to Stand (QC): 5 Gait Training Does the Patient Walk?: Yes Distance: 120' x2 Walk 10 feet (QC): 6 Walk 50 ft with 2 Turns(QC): 6 Gait Assistive Device: FWW Patient continues to utilize step-to gait, but is steady with ambulation and has good pacing. Navigates turns very well. Exercises Standing: Hip Abduction, Heel/toe raises, Mini squats (10 reps) Standing Reps: 15 Treatments LE strengthening, balance, gait training, transfers Assessment Current Status: Fair Progress good endurance with ther ex PT Short Term Goals Short Term Goals Time Frame: Aug 26, 2020 Sit to lyin Lying to sitting on side of be: 5 Walk 150 feet: 5 4 steps: 4 PT Senior Living Goals Senior Living Goals PT Senior Living Goals Time Frame: September 04, 2020 Roll Left & Right (QC): 6 Sit to Lying (QC): 6 Lying-Sitting on Side/Bed(QC): 6 Sit to Stand (QC): 6 Chair/Psr-hh-Ookff Xfer(QC): 6 Toilet Transfer (QC): 6 Car Transfer (QC): 6 Does the Patient Walk: Yes Walk 10 feet (QC): 6 Walk 50ft with 2 Turns (QC): 6 Walk 150 ft (QC): 6 Walking 10ft on Uneven Surface: 6 1 Step (curb) (QC): 6 4 Steps (QC): 6 12 Steps (QC): 6 Picking up an Object (QC): 4 Does the Pt use WC or Scooter?: No Wheel 50 feet with 2 turns (QC: 9 Wheel 150 feet: 9 PT Plan Problem List Problem List: Activity Tolerance, Functional Strength, Safety, Balance, Gait, Transfer, Bed Mobility, ROM Treatment/Plan Treatment Plan: Continue Plan of Care Treatment Plan: Bed Mobility, Education, Functional Activity Leonela, Functional Strength, Group Therapy, Gait, Safety, Therapeutic Exercise, Transfers Treatment Duration: September 04, 2020 Frequency: At least 5 of 7 days/Wk (IRF) Estimated Hrs Per Day: 1.5 hours per day Patient and/or Family Agrees t: Yes Safety Risks/Education Patient Education: Gait Training, Transfer Techniques, Reviewed Precautions, Correct Positioning, Safety Issues Teaching Recipient: Patient Teaching Methods: Demonstration, Discussion Response to Teaching: Verbalize Understanding, Return Demonstration Time/GCodes Time In: 1430 Time Out: 1445 Total Billed Treatment Time: 15 Total Billed Treatment 1 visit: LUZ REAL PT Aug 20, 2020 15:04
[2020-08-20 20:00] VITALS: BP 109/65
[2020-08-20] MEDS: FAMOTIDINE 20 MG (PEPCID) TABLET PO SCH (20:32)
[2020-08-20] MEDS: TERAZOSIN 5 MG (HYTRIN) CAPSULE PO SCH (20:32)
--- NOTE | 2020-08-21 06:09 | PM&R Progress Note ---
Subjective HPI/CC On Admission Date Seen by Provider: Aug 21, 2020 Time Seen by Provider: 09:00 Subjective/Events-last exam 08/21/20: Pt doing pretty well IV iron initiated due to low iron level Wednesday discharge planned Tylenol and Ultram helping with the pain Slums score is 24/30 08/20/20: Pt doing a lot better Hgb 8.4 Iron pending 2 liters of oxygen at night Crackles in his lungs, will get an IS for him to use and he does report that is chronic Review of Systems General: Fatigue, Malaise Neurological: Weakness Objective Exam Vital Signs Vital Signs Date Time Temp Pulse Resp B/P (MAP) Pulse Ox O2 Delivery O2 Flow Rate FiO2 08/21/20 21:00 96 Room Air 08/21/20 20:00 37.2 85 18 134/68 (90) Capillary Refill : General Appearance: No Apparent Distress, WD/WN, Chronically ill HEENT: PERRL/EOMI, Normal ENT Inspection, Pharynx Normal Neck: Full Range of Motion, Normal Inspection, Non Tender, Supple, Carotid Bruit Respiratory: Chest Non Tender, No Accessory Muscle Use, No Respiratory Distress, Crackles Cardiovascular: Regular Rate, Rhythm, No Edema, No Gallop, No JVD, No Murmur, Normal Peripheral Pulses Gastrointestinal: Normal Bowel Sounds, No Organomegaly, No Pulsatile Mass, Non Tender, Soft Back: Normal Inspection, No CVA Tenderness, No Vertebral Tenderness Extremity: Normal Capillary Refill, Normal Inspection, Normal Range of Motion (left leg decreased ROM), Non Tender, No Calf Tenderness, No Pedal Edema Neurologic/Psychiatric: Alert, Oriented x3, No Motor/Sensory Deficits, casing sewer II-X II Norm as Tested, Abnormal Gait, Depressed Affect, Motor Weakness (left leg) Skin: Normal Color, Warm/Dry Lymphatic: No Adenopathy Results/Procedures Lab Patient resulted labs reviewed. FIM Transfers Therapy Code Descriptions/Definitions Functional [place] Measure: 0=Not Assessed/NA 4=Minimal Assistance 1=Total Assistance 5=Supervision or Setup 2=Maximal Assistance 6=Modified [place] 3=Moderate Assistance 7=Complete IndependenceSCALE: Activities may be completed with or without assistive devices. 2-Ywzzjyyfrt-zqeazte completes the activity by him/herself with no assistance from a helper. 5-Set-up or Clean-up Assistance-helper sets up or cleans up; patient completes activity. [place] assists only prior to or following the activity. 4-Supervision or Touching Assistance-helper provides verbal cues and/or touching/steadying and/or contact guard assistance as patient completes activity. Assistance may be provided throughout the activity or intermittently. 3-Partial/Moderate Assistance-helper does LESS THAN HALF the effort. [place] lifts, holds or supports trunk or limbs, but provides less than half the effort. 2-Substantial/Maximal Assistance-helper does MORE THAN HALF the effort. [place] lifts or holds trunk or limbs and provides more than half the effort. 2-Ayagtlzpn-tljduo does ALL the effort. Patient does none of the effort to complete the activity. Or, the assistance of 2 or more helpers is required for the patient to complete the activity. If activity was not attempted, code reason: 7-Patient Refused. 9-Not Applicable-not attempted and the patient did not perform the activity before the current illness, exacerbation or injury. 10-Not Attempted due to Environmental Limitations-(lack of equipment, weather restraints, etc.). 88-Not Attempted due to Medical Conditions or Safety Concerns. Roll Left to Right (QC): 4 Sit to Lying (QC): 3 (assist with left LE) Sit to Stand (QC): 5 Chair/Pog-ta-Qjfie Xfer(QC): 5 Car Transfer (QC): 3 (asssit wth left LE) Gait Training Does the Patient Walk?: Yes Distance: 120' x2 Walk 10 feet (QC): 6 Walk 50 ft with 2 Turns(QC): 6 Walk 150 ft (QC): 5 Walking 10ft/uneven surface-QC: 3 (min assist for balance/safety) Gait Assistive Device: FWW Wheelchair Training Does the Pt Use a Wheelchair?: No Wheel 50 ft with 2 turns (QC): 9 Wheel 150 ft (QC): 9 Stair Training 1 Step (curb) (QC): 3 4 Steps (QC): 88 12 Steps (QC): 88 Balance Picking up an Object (QC): 88 ADL-Treatment Eating (QC): 6 (per pt report) Oral Hygiene (QC): 6 (IND standing at sink.) Shower/Bathe Self (QC): 3 (Min A with LEs. Pt able to wash/dry all other parts with SBA in stand at GBs) Upper Body Dressing (QC): 5 (set up) Lower Body Dressing (QC): 4 (SBA, pt able to use AE to doff/don LE clothing, education on AE with min cues during task.) On/Off Footwear (QC): 3 (Min A doffing/donning LLE footwear. Pt able to complete RLE.) Toileting Hygiene (QC): 4 (SBA, pt able to manage clothing and perform hygiene.) Assessment/Plan Assessment and Plan Assess & Plan/Chief Complaint Assessment: s/p left total hip replacement Hypotension after surgery requiring ICU stay with transfusion CAD HTN HLP Anemia post op iron deficiency GERD BPH Plan: Pain control Home meds IRF protocol 08/20/20: Monitor lungs IS Pain control 08/20/20: Monitor closely Pain control Await iron level 08/21/20: Monitor SLUMS IV iron DC Wednesday (1) Status post left hip replacement (2) CAD (coronary artery disease) (3) Hypertension (4) Hyperlipemia (5) BPH (benign prostatic hyperplasia) (6) Anemia (7) GERD (gastroesophageal reflux disease) LYNDA MARSHALL DO Aug 21, 2020 06:08
[2020-08-21] MEDS: MULTIVIT W/MINERALS TAB (THERAGRAN M) PO SCH (06:39)
[2020-08-21] MEDS: CLOPIDOGREL 75 MG (PLAVIX) TABLET PO SCH (07:36)
[2020-08-21] MEDS: FENOFIBRATE 134 MG (LOFIBRA) CAPSULE PO SCH (07:37)
[2020-08-21] MEDS: ISOSORBIDE MONONITRATE 30 MG (IMDUR) TAB PO SCH (07:37)
[2020-08-21] MEDS: polyethylene glycoL POWDER 17 GM (MIRALAX) PACK PO SCH ×2 (07:37→21:00)
[2020-08-21] MEDS: IRON SUCROSE 200 MG/10 ML (VENOFER) VIAL IV SCH (07:37)
[2020-08-21 07:41] VITALS: BP 134/82
[2020-08-21] MEDS: FOLIC ACID 1 MG TAB PO SCH (07:43)
[2020-08-21] MEDS: meTOprolol TARTRATE 50 MG (LOPRESSOR) TAB PO SCH ×2 (07:43→21:02)
[2020-08-21] MEDS: CYANOCOBALAMIN 1,000 MCG (VITAMIN B-12) TABLET PO SCH (07:43)
[2020-08-21] MEDS: GABAPENTIN 100 MG (NEURONTIN) CAP PO SCH ×2 (07:43→21:02)
[2020-08-21] MEDS: RANOLAZINE ER 500 MG TAB (RANEXA) PO SCH ×2 (07:43→21:02)
[2020-08-21] MEDS: SENNA W/DOCUSATE (SENOKOT S) TABLET PO SCH ×2 (07:43→21:00)
[2020-08-21] MEDS: DOCUSATE SODIUM 100 MG (COLACE) CAP PO SCH ×2 (07:43→21:00)
[2020-08-21] MEDS: PANTOPRAZOLE 40 MG (PROTONIX) TAB PO SCH (07:43)
[2020-08-21] MEDS: ASPIRIN E.C. 81 MG (ECOTRIN) TAB PO SCH (07:43)
[2020-08-21] MEDS: VITAMIN D3 125 MCG (5,000 UNITS) CAPSULE PO SCH (07:43)
[2020-08-21] MEDS: ACETAMINOPHEN 325 MG TABLET PO PRN ×2 (07:44→21:02)
--- NOTE | 2020-08-21 08:26 | Occupational Ther Daily Note ---
OT Current Status-Daily Note Subjective Pt seated in recliner, agreeable to OT tx with focus on ADLs. ADL-Treatment Therapy Code Descriptions/Definitions Functional [place] Measure: 0=Not Assessed/NA 4=Minimal Assistance 1=Total Assistance 5=Supervision or Setup 2=Maximal Assistance 6=Modified [place] 3=Moderate Assistance 7=Complete IndependenceSCALE: Activities may be completed with or without assistive devices. 0-Giqgjydaul-hgmhexx completes the activity by him/herself with no assistance from a helper. 5-Set-up or Clean-up Assistance-helper sets up or cleans up; patient completes activity. [place] assists only prior to or following the activity. 4-Supervision or Touching Assistance-helper provides verbal cues and/or touchin g/steadying and/or contact guard assistance as patient completes activity. Assistance may be provided throughout the activity or intermittently. 3-Partial/Moderate Assistance-helper does LESS THAN HALF the effort. [place] lifts, holds or supports trunk or limbs, but provides less than half the effort. 2-Substantial/Maximal Assistance-helper does MORE THAN HALF the effort. [place] lifts or holds trunk or limbs and provides more than half the effort. 5-Jrzsfvgov-ervrff does ALL the effort. Patient does none of the effort to complete the activity. Or, the assistance of 2 or more helpers is required for the patient to complete the activity. If activity was not attempted, code reason: 7-Patient Refused. 9-Not Applicable-not attempted and the patient did not perform the activity before the current illness, exacerbation or injury. 10-Not Attempted due to Environmental Limitations-(lack of equipment, weather restraints, etc.). 88-Not Attempted due to Medical Conditions or Safety Concerns. Eating (QC): 6 (IND per pt report) Oral Hygiene (QC): 6 (IND standing at sink) Shower/Bathe Self (QC): 5 (set up, pt able to wash/dry all parts.) Upper Body Dressing (QC): 6 (IND, pt gathered clothes from closet, doff/donned independently.) Lower Body Dressing (QC): 4 (SBA for safety, pt required verbal cue to sit down while doffing pants. Pt then able to doff/don pants using AE.) On/Off Footwear: 4 (SBA for safety, pt required 1 verbal cue to sit down while doffing socks, pt able to doff/don using AE) Toileting Hygiene (QC): 6 (Pt urinated independently standing at toilet using GBs and FWW) Other Treatment Pt seated in recliner, used FWW to perform functional mobility around his room to gather clothes. Pt then used FWW to go to bathroom, stood at toilet to urinate. Pt then attempted to doff LE clothing while standing, requiring 1 verbal cue to sit down during task for safety.Pt then doffed clothes at SC, then completed shower. Pt transferred to chair with arm rests to get dressed. Pt able to don lower body clothing and footwear using AE, no verbal cues. Pt stood at sink with FWW to complete oral care and hair brushing independently, then transferred to recliner for a seated rest break. Pt then used FWW to perform functional mobility to therapy gym. In order to increase BUE strength and activity tolerance, pt completed x10 mins on arm bike, min resistance, no rest breaks. Pt returned to room using FWW. Post tx, pt seated in recliner, call light in reach and all needs met. Education OT Patient Education: Correct positioning, Energy conservation, Exercise program, Modified ADL techniques, Progress toward Goal/Update tx plan, Purpose of tx/functional activities, Rehab process, Safety issues, Use of adapted equipment Teaching Recipient: Patient Teaching Methods: Discussion Response to Teaching: Verbalize Understanding OT Short Term Goals Short Term Goals Time Frame: Aug 28, 2020 Lower body dressin Putting on/taking off footwear: 4 OT Medical Aides Teacher Goals Medical Aides Teacher Goals Time Frame: September 06, 2020 Eating (QC): 6 Oral Hygiene (QC): 6 Toileting Hygiene (QC): 6 Shower/Bathe Self (QC): 6 Upper Body Dressing (QC): 6 Lower Body Dressing (QC): 6 On/Off Footwear (QC): 6 Additional Goals: 1-Demonstrate ADL Tasks, 2-Verbalize Understanding, 3- ImproveStrength/Leonela 1=Demonstrate adherence to instructed precautions during ADL tasks. 2=Patient will verbalize/demonstrate understanding of assistive devices/modifications for ADL. 3=Patient will improve strength/tolerance for activity to enable patient to perform ADL's. OT Education/Plan Problem List/Assessment Assessment: Decreased Activ Tolerance, Decreased UE Strength, Impaired I ADL's, Impaired Self-Care Skills Discharge Recommendations Plan/Recommendations: Continue POC Treatment Plan/Plan of Care Patient would benefit from OT for education, treatment and training to promote independence in ADL's, mobility, safety and/or upper extremity function for ADL's. Plan of Care: ADL Retraining, Functional Mobility, Group Exercise/Act as Ind, UE Funct Exercise/Act Treatment Duration: September 06, 2020 Frequency: At least 5 of 7 days/Wk (IRF) Estimated Hrs Per Day: 1.5 hours per day Rehab Potential: Good Time/GCodes Start Time: 08:00 Stop Time: 09:15 Total Time Billed (hr/min): 75 Billed Treatment Time 1, ADL 4 (60'), EX (15') MILLIE BRANCH OT Aug 21, 2020 08:26
[2020-08-21] MEDS ORDERED: CARV25TA PO (09:32)
[2020-08-21] MEDS ORDERED: SPIR25TA5 PO (09:32)
[2020-08-21] MEDS ORDERED: ISOS120T9 PO (09:37)
--- NOTE | 2020-08-21 10:07 | Speech Therapy Daily Note ---
Speech Daily Progress Note Subjective Date Seen by Provider: Aug 21, 2020 Time Seen by Provider: 00:30 Pt was alert and pleasant. Pt agreed to ST services. Objective Patient completed problem solving tasks with 90% with moderate verbal and/or visual cues. Assessment Assessment Current Status: Good Progress Treatment Plan Continue Plan of Care Speech Short Term Goals Short Term Goals Short Term Goals 1.) Patient will complete memory tasks related to daily needs with 90% or greater with minimal cues. 2.) Patient will complete problem solving tasks related to daily needs with 90% or greater with minimal cues. 3.) Patient will complete safety awareness tasks related to daily needs with 90% or greater with minimal cues. Speech Long-Term Goals Long-Term Goals Patient will improve cognitive-communication skills necessary for safety and daily living tasks with minimal assist. Speech-Plan Patient/Family Goals Patient/Family Goals: Pt plans to return home upon d/c from [facility] where he lives alone. Treatment Plan Speech Therapy Treatment Plan: Continue Plan of Care Treatment Duration: Aug 27, 2020 Frequency: 4 times per week (4-5x per week) Estimated Hrs Per Day: Other Rehab Potential: Good Barriers to Learning: Medical status and age Pt/Family Agrees to Plan: Yes Safety Risks/Education Teaching Recipient: Patient Teaching Methods: Demonstration, Discussion Response to Teaching: Verbalize Understanding, Return Demonstration, Reinforcement Needed Education Topics Provided: Safety and compensatory memory strategies Time Speech Therapy Time In: 09:30 Speech Therapy Time Out: 10:00 Total Billed Time: 30 Billed Treatment Time 1, AMIE Raymond Aug 21, 2020 10:07
--- NOTE | 2020-08-21 10:50 | Physical Therapy Daily Note ---
PT Daily Note-Current Subjective Pt. states he is still not very familiar with the schedule and how things work here. Agrees to rx. States he has very little to no pain in left hip. Describes home situation and stairs Pain Location: No Pain Reported Mental Status Patient Orientation: Normal For Age Attachments: Other-See Comments (mask) Transfers SCALE: Activities may be completed with or without assistive devices. 9-Thnleldabc-doxpyek completes the activity by him/herself with no assistance from a helper. 5-Set-up or Clean-up Assistance-helper sets up or cleans up; patient completes activity. [place] assists only prior to or following the activity. 4-Supervision or Touching Assistance-helper provides verbal cues and/or touching/steadying and/or contact guard assistance as patient completes activity. Assistance may be provided throughout the activity or intermittently. 3-Partial/Moderate Assistance-helper does LESS THAN HALF the effort. [place] lifts, holds or supports trunk or limbs, but provides less than half the effort. 2-Substantial/Maximal Assistance-helper does MORE THAN HALF the effort. [place] lifts or holds trunk or limbs and provides more than half the effort. 4-Fxkabtcec-adpaws does ALL the effort. Patient does none of the effort to complete the activity. Or, the assistance of 2 or more helpers is required for the patient to complete the activity. If activity was not attempted, code reason: 7-Patient Refused. 9-Not Applicable-not attempted and the patient did not perform the activity before the current illness, exacerbation or injury. 10-Not Attempted due to Environmental Limitations-(lack of equipment, weather restraints, etc.). 88-Not Attempted due to Medical Conditions or Safety Concerns. Roll Left & Right (QC): 6 Sit to Lying (QC): 6 (toward left like home) Lying to Sitting/Side of Bed(Q: 6 Sit to Stand (QC): 6 Chair/Roe-uw-Rrycv Xfer(QC): 6 Toilet Transfer (QC): 6 Car Transfer (QC): 6 Gait Training Does the Patient Walk?: Yes Walk 10 feet (QC): 6 Walk 50 ft with 2 Turns(QC): 6 Walk 150 ft (QC): 6 Walking 10ft/uneven surface-QC: 6 Gait Persons Needed: 0 Gait Assistive Device: FWW no LOB, good safety awareness Wheelchair Training Does the Pt Use a Wheelchair?: No Stair Training Stair Training: Handrails/: 2 handrails #of Steps: 4 1 Step (curb) (QC): 4 4 Steps (QC): 4 12 Steps (QC): 88 Stairs: Pattern: Step to some sequence instruction needed , will review and practice again this PM Rx Balance Picking up an Object (QC): 88 Exercises Supine Ex: Ankle pumps, Quad Set, Rolling, Glut sets, Heel Slides, Short Arc Quads, Scooting, Hip abd/add Supine Reps: 15 Seated Therapy Exercises: Ankle pumps, Sit to stand, Long arc quads Seated Reps: 15 Assessment Current Status: Good Progress has zero entry home, will have some help living with him upstairs in the portion of his house PT Short Term Goals Short Term Goals Time Frame: Aug 26, 2020 Sit to lyin Lying to sitting on side of be: 5 Walk 150 feet: 5 4 steps: [address] Technologist Go[address] Technologist Goals PT Retirement Goals Time Frame: September 04, 2020 Roll Left & Right (QC): 6 Sit to Lying (QC): 6 Lying-Sitting on Side/Bed(QC): 6 Sit to Stand (QC): 6 Chair/Cyw-la-Jtacg Xfer(QC): 6 Toilet Transfer (QC): 6 Car Transfer (QC): 6 Does the Patient Walk: Yes Walk 10 feet (QC): 6 Walk 50ft with 2 Turns (QC): 6 Walk 150 ft (QC): 6 Walking 10ft on Uneven Surface: 6 1 Step (curb) (QC): 6 4 Steps (QC): 6 12 Steps (QC): 6 Picking up an Object (QC): 4 Does the Pt use WC or Scooter?: No Wheel 50 feet with 2 turns (QC: 9 Wheel 150 feet: 9 PT Plan Treatment/Plan Treatment Plan: Continue Plan of Care Treatment Plan: Bed Mobility, Education, Functional Activity Leonela, Functional Strength, Group Therapy, Gait, Safety, Therapeutic Exercise, Transfers Treatment Duration: September 04, 2020 Frequency: At least 5 of 7 days/Wk (IRF) Estimated Hrs Per Day: 1.5 hours per day Patient and/or Family Agrees t: Yes Safety Risks/Education Patient Education: Gait Training, Transfer Techniques, Steps, Reviewed Pr ecautions (avoid extension and limit flexion against gravity), Correct Positioning, Disease Process, Safety Issues Teaching Recipient: Patient Teaching Methods: Demonstration, Discussion Response to Teaching: Verbalize Understanding, Return Demonstration, Reinforcement Needed Time/GCodes Time In: 1000 Time Out: 1100 Total Billed Treatment Time: 60 Total Billed Treatment 1,EX30m,FA30m KEISHA HOLLINS BREWERY TECHNICIAN Aug 21, 2020 10:50
--- NOTE | 2020-08-21 14:20 | Physical Therapy Daily Note ---
PT Daily Note-Current Subjective Pt. agrees to Rx. States he needs to toilet, and can stand and urinate indep. Describes his bath and shower situation at home Pain Location: No Pain Reported Mental Status Patient Orientation: Normal For Age Attachments: Other-See Comments (mask) Transfers SCALE: Activities may be completed with or without assistive devices. 9-Ifjbvmcgfw-noizpdo completes the activity by him/herself with no assistance from a helper. 5-Set-up or Clean-up Assistance-helper sets up or cleans up; patient completes activity. [place] assists only prior to or following the activity. 4-Supervision or Touching Assistance-helper provides verbal cues and/or touching/steadying and/or contact guard assistance as patient completes activity. Assistance may be provided throughout the activity or intermittently. 3-Partial/Moderate Assistance-helper does LESS THAN HALF the effort. [place] lifts, holds or supports trunk or limbs, but provides less than half the effort. 2-Substantial/Maximal Assistance-helper does MORE THAN HALF the effort. [place] lifts or holds trunk or limbs and provides more than half the effort. 0-Vfunndbyt-wyxroy does ALL the effort. Patient does none of the effort to complete the activity. Or, the assistance of 2 or more helpers is required for the patient to complete the activity. If activity was not attempted, code reason: 7-Patient Refused. 9-Not Applicable-not attempted and the patient did not perform the activity before the current illness, exacerbation or injury. 10-Not Attempted due to Environmental Limitations-(lack of equipment, weather restraints, etc.). 88-Not Attempted due to Medical Conditions or Safety Concerns. all TRFs mod I Gait Training Does the Patient Walk?: Yes Gait Assistive Device: FWW 25 ft x 2, 175 ft x 2 SBA no dipika LOB, decreased step length left Treatments pt. TRFd using extended tub bench with SBA Assessment Current Status: Good Progress PT Short Term Goals Short Term Goals Time Frame: Aug 26, 2020 Sit to lyin Lying to sitting on side of be: 5 Walk 150 feet: 5 4 steps: 4 PT Recreation Facility Manager Goals Half-Way Goals PT Half-Way Goals Time Frame: September 04, 2020 Roll Left & Right (QC): 6 Sit to Lying (QC): 6 Lying-Sitting on Side/Bed(QC): 6 Sit to Stand (QC): 6 Chair/Wnj-fz-Slaaj Xfer(QC): 6 Toilet Transfer (QC): 6 Car Transfer (QC): 6 Does the Patient Walk: Yes Walk 10 feet (QC): 6 Walk 50ft with 2 Turns (QC): 6 Walk 150 ft (QC): 6 Walking 10ft on Uneven Surface: 6 1 Step (curb) (QC): 6 4 Steps (QC): 6 12 Steps (QC): 6 Picking up an Object (QC): 4 Does the Pt use WC or Scooter?: No Wheel 50 feet with 2 turns (QC: 9 Wheel 150 feet: 9 PT Plan Treatment/Plan Treatment Plan: Continue Plan of Care Treatment Plan: Bed Mobility, Education, Functional Activity Leonela, Functional Strength, Group Therapy, Gait, Safety, Therapeutic Exercise, Transfers Treatment Duration: September 04, 2020 Frequency: At least 5 of 7 days/Wk (IRF) Estimated Hrs Per Day: 1.5 hours per day Patient and/or Family Agrees t: Yes Safety Risks/Education Patient Education: Gait Training, Transfer Techniques, Correct Positioning, Safety Issues Teaching Recipient: Patient Teaching Methods: Demonstration, Discussion Response to Teaching: Verbalize Understanding, Return Demonstration, Reinforcement Needed Time/GCodes Time In: 1305 Time Out: 1325 Total Billed Treatment Time: 20 Total Billed Treatment 1,FA20m KEISHA HOLLINS FUEL TRUCK DRIVER Aug 21, 2020 14:20
[2020-08-21 20:00] VITALS: BP 134/68
[2020-08-21] MEDS: TERAZOSIN 5 MG (HYTRIN) CAPSULE PO SCH (21:02)
[2020-08-21] MEDS: FAMOTIDINE 20 MG (PEPCID) TABLET PO SCH (21:02)
[2020-08-22] MEDS: MULTIVIT W/MINERALS TAB (THERAGRAN M) PO SCH (06:25)
--- NOTE | 2020-08-22 07:30 | Physician Query Clarification ---
PQ-Further Specificity Admission/Discharge Admission Date: Aug 19, 2020 at 14:10 Discharge Date: Dr. Sales, The medical record reflects the following clinical scenario: History/Risk Factors: Lt hip fx Clinical Findings: s/p Lt THR Treatment: Rehab Question: Can you further specify the type/etiology of the lt hip fx per the clinical indicators above? Please document a response in the Progress Notes or Discharge Summary. 1. Lt hip fx d/t avascular necrosis 2. Lt hip fx d/t trauma (please specify cause) 3. Other, with explanation of the clinical findings. 4. Clinically undetermined, no explanation for the clinical findings. PHYSICIAN RESPONSE Can you specify per above: 1 Please remember a lack of response to the above will prompt a phone page by CDI/Coding staff. In responding to this query, please exercise your independent professional judgment. The purpose of this communication is to more accurately reflect the complexity of your patients condition. The fact that a question is asked does not imply that any particular answer is desired or expected. Thank you for your timely response to this clarification. Requestors name: Kayla [email or web address] THIS PHYSICIAN QUERY FORM IS A PERMANENT PART OF THE MEDICAL RECORD KAYLA ARGUELLO Aug 22, 2020 07:30 LYNDA SALES DO Aug 22, 2020 20:24
--- NOTE | 2020-08-22 07:35 | Physician Query Clarification ---
PQ-Further Specificity Admission/Discharge Admission Date: Aug 19, 2020 at 14:10 Discharge Date: Dr. Sales, The medical record reflects the following clinical scenario: History/Risk Factors: Lt hip fx, s/p Lt THR, postop iron deficiency anemia Clinical Findings: Hgb/Hct 8.08/26 Treatment: IV Venofer Question: Can you further specify iron deficiency anemia per the clinical indicators above? Please document a response in the Progress Notes or Discharge Summary. 1. iron deficiency anemia d/t acute blood loss 2. iron deficiency anemia not further specified 3. Other, with explanation of the clinical findings. 4. Clinically undetermined, no explanation for the clinical findings. PHYSICIAN RESPONSE Can you specify per above: 1 Please remember a lack of response to the above will prompt a phone page by CDI/Coding staff. In responding to this query, please exercise your independent professional judgment. The purpose of this communication is to more accurately reflect the complexity of your patients condition. The fact that a question is asked does not imply that any particular answer is desired or expected. Thank you for your timely response to this clarification. Requestors name: Kayla [email or web address] THIS PHYSICIAN QUERY FORM IS A PERMANENT PART OF THE MEDICAL RECORD KAYLA ARGUELLO Aug 22, 2020 07:35 LYNDA SALES DO Aug 22, 2020 20:25
[2020-08-22 08:00] VITALS: BP 118/68
--- NOTE | 2020-08-22 08:20 | Occupational Ther Daily Note ---
OT Current Status-Daily Note Subjective Pt seated in recliner sleeping, easily awoken for therapy. Pt agreeable to OT Tx with focus on UEs as he has already gotten dressed this AM ADL-Treatment Therapy Code Descriptions/Definitions Functional [place] Measure: 0=Not Assessed/NA 4=Minimal Assistance 1=Total Assistance 5=Supervision or Setup 2=Maximal Assistance 6=Modified [place] 3=Moderate Assistance 7=Complete IndependenceSCALE: Activities may be completed with or without assistive devices. 1-Hnryelkoba-bufejxf completes the activity by him/herself with no assistance from a helper. 5-Set-up or Clean-up Assistance-helper sets up or cleans up; patient completes activity. [place] assists only prior to or following the activity. 4-Supervision or Touching Assistance-helper provides verbal cues and/or touching/steadying and/or contact guard assistance as patient completes activity. Assistance may be provided throughout the activity or intermittently. 3-Partial/Moderate Assistance-helper does LESS THAN HALF the effort. [place] lifts, holds or supports trunk or limbs, but provides less than half the effort. 2-Substantial/Maximal Assistance-helper does MORE THAN HALF the effort. [place] lifts or holds trunk or limbs and provides more than half the effort. 4-Hbmshmkhq-bielig does ALL the effort. Patient does none of the effort to complete the activity. Or, the assistance of 2 or more helpers is required for the patient to complete the activity. If activity was not attempted, code reason: 7-Patient Refused. 9-Not Applicable-not attempted and the patient did not perform the activity before the current illness, exacerbation or injury. 10-Not Attempted due to Environmental Limitations-(lack of equipment, weather restraints, etc.). 88-Not Attempted due to Medical Conditions or Safety Concerns. Eating (QC): 6 Oral Hygiene (QC): 6 Toileting Hygiene (QC): 6 Other Treatment Pt agreeable to OT, states already got himself dressed this AM, no difficulties/concerns. Pt used FWW to ambulate into bathroom, completed toileting, then stood at sink to use mouthwash. Pt performed functional mobility to therapy gym using FWW, no LOB. In order to increase BUE strength and activity tolerance, pt completed x17 mins on arm bike, min resistance,1 rest break after 10 mins. Pt then removed beads from heavy resistance theraputty in order to increase fine motor strength and coordination BUEs. Pt able to find all beads without cues. Pt then placed/removed x100 pegs from foam pegboard, alternating L/R hand with task, in order to increase BUE strength, coordination, & activity tolerance. Pt used FWW to perform functional mobility around [facility] common area/2nd floor, then returned to room. Post tx, pt seated in recliner, call light in reach and all needs met. Education OT Patient Education: Correct positioning, Modified ADL techniques, Progress toward Goal/Update tx plan, Purpose of tx/functional activities Teaching Recipient: Patient Teaching Methods: Discussion Response to Teaching: Verbalize Understanding OT Short Term Goals Short Term Goals Time Frame: Aug 28, 2020 Lower body dressin Putting on/taking off footwear: 4 OT Scrum Product Owner Goals Senior Care Goals Time Frame: September 06, 2020 Eating (QC): 6 Oral Hygiene (QC): 6 Toileting Hygiene (QC): 6 Shower/Bathe Self (QC): 6 Upper Body Dressing (QC): 6 Lower Body Dressing (QC): 6 On/Off Footwear (QC): 6 Additional Goals: 1-Demonstrate ADL Tasks, 2-Verbalize Understanding, 3- ImproveStrength/Leonela 1=Demonstrate adherence to instructed precautions during ADL tasks. 2=Patient will verbalize/demonstrate understanding of assistive devices/modifications for ADL. 3=Patient will improve strength/tolerance for activity to enable patient to perform ADL's. OT Education/Plan Problem List/Assessment Assessment: Decreased Activ Tolerance, Decreased UE Strength, Impaired I ADL's Discharge Recommendations Plan/Recommendations: Continue POC Treatment Plan/Plan of Care Patient would benefit from OT for education, treatment and training to promote independence in ADL's, mobility, safety and/or upper extremity function for ADL's. Plan of Care: ADL Retraining, Functional Mobility, Group Exercise/Act as Ind, UE Funct Exercise/Act Treatment Duration: September 06, 2020 Frequency: At least 5 of 7 days/Wk (IRF) Estimated Hrs Per Day: 1.5 hours per day Rehab Potential: Good Time/GCodes Start Time: 08:00 Stop Time: 09:15 Total Time Billed (hr/min): 75 Billed Treatment Time 1, ADL (15'), EX (20'), FA 3 (40') CRUMPACKER,MILLIE OT Aug 22, 2020 08:20
[2020-08-22] MEDS: FENOFIBRATE 134 MG (LOFIBRA) CAPSULE PO SCH (08:28)
[2020-08-22] MEDS: GABAPENTIN 100 MG (NEURONTIN) CAP PO SCH ×2 (08:28→21:05)
[2020-08-22] MEDS: VITAMIN D3 125 MCG (5,000 UNITS) CAPSULE PO SCH (08:28)
[2020-08-22] MEDS: FOLIC ACID 1 MG TAB PO SCH (08:29)
[2020-08-22] MEDS: CYANOCOBALAMIN 1,000 MCG (VITAMIN B-12) TABLET PO SCH (08:29)
[2020-08-22] MEDS: RANOLAZINE ER 500 MG TAB (RANEXA) PO SCH ×2 (08:29→21:05)
[2020-08-22] MEDS: SENNA W/DOCUSATE (SENOKOT S) TABLET PO SCH ×2 (08:29→21:06)
[2020-08-22] MEDS: DOCUSATE SODIUM 100 MG (COLACE) CAP PO SCH ×2 (08:29→21:06)
[2020-08-22] MEDS: meTOprolol TARTRATE 50 MG (LOPRESSOR) TAB PO SCH ×2 (08:29→21:05)
[2020-08-22] MEDS: CLOPIDOGREL 75 MG (PLAVIX) TABLET PO SCH (08:29)
[2020-08-22] MEDS: ASPIRIN E.C. 81 MG (ECOTRIN) TAB PO SCH (08:29)
[2020-08-22] MEDS: PANTOPRAZOLE 40 MG (PROTONIX) TAB PO SCH (08:29)
[2020-08-22] MEDS: polyethylene glycoL POWDER 17 GM (MIRALAX) PACK PO SCH ×2 (08:29→21:06)
[2020-08-22] MEDS: ISOSORBIDE MONONITRATE 30 MG (IMDUR) TAB PO SCH (08:29)
--- NOTE | 2020-08-22 10:39 | Speech Therapy Daily Note ---
Speech Daily Progress Note Subjective Date Seen by Provider: Aug 22, 2020 Time Seen by Provider: 00:30 Pt was alert and pleasant. Pt was talkative and reminiscent. Objective Patient completed problem solving tasks related to daily needs with 90% or greater with min to moderate cues. Assessment Assessment Current Status: Good Progress Treatment Plan Continue Plan of Care Speech Short Term Goals Short Term Goals Short Term Goals 1.) Patient will complete memory tasks related to daily needs with 90% or greater with minimal cues. 2.) Patient will complete problem solving tasks related to daily needs with 90% or greater with minimal cues. 3.) Patient will complete safety awareness tasks related to daily needs with 90% or greater with minimal cues. Speech Fpc Goals Fpc Goals Patient will improve cognitive-communication skills necessary for safety and daily living tasks with minimal assist. Speech-Plan Patient/Family Goals Patient/Family Goals: Pt plans to return home where he lives alone upon D/C from ARU. Treatment Plan Speech Therapy Treatment Plan: Continue Plan of Care Treatment Duration: Aug 26, 2020 Frequency: 4 times per week (4-5x per week) Estimated Hrs Per Day: Other Rehab Potential: Good Barriers to Learning: Medical status and age. Pt/Family Agrees to Plan: Yes Safety Risks/Education Teaching Recipient: Patient Teaching Methods: Demonstration, Discussion Response to Teaching: Verbalize Understanding, Return Demonstration, Reinforcement Needed Education Topics Provided: Safety and problem solving strategies. Time Speech Therapy Time In: 11:00 Speech Therapy Time Out: 11:30 Total Billed Time: 30 Billed Treatment Time 1SH[address] Aug 22, 2020 10:39
--- NOTE | 2020-08-22 10:45 | PM&R Progress Note ---
Subjective HPI/CC On Admission Date Seen by Provider: Aug 22, 2020 Time Seen by Provider: 12:45 Subjective/Events-last exam 08/22/20: Pt doing pretty well Does not recall receiving an iron infusion and hes had two iron infusions this far Tolerating everything very well Feels like he is improving DC is planned for Wednesday08/21/20: Pt doing pretty well IV iron initiated due to low iron level Wednesday discharge planned Tylenol and Ultram helping with the pain Slums score is 08/20/20: Pt doing a lot better Hgb 8.4 Iron pending 2 liters of oxygen at night Crackles in his lungs, will get an IS for him to use and he does report that is chronic Review of Systems General: Fatigue Musculoskeletal: leg pain Neurological: Weakness Objective Exam Vital Signs Vital Signs Date Time Temp Pulse Resp B/P (MAP) Pulse Ox O2 Delivery O2 Flow Rate FiO2 08/22/20 21:00 98 Room Air 08/22/20 20:00 37.5 85 20 132/76 (94) Capillary Refill : General Appearance: No Apparent Distress, WD/WN, Chronically ill HEENT: PERRL/EOMI, Normal ENT Inspection, Pharynx Normal Neck: Full Range of Motion, Normal Inspection, Non Tender, Supple, Carotid Bruit Respiratory: Chest Non Tender, No Accessory Muscle Use, No Respiratory Distress, Crackles Cardiovascular: Regular Rate, Rhythm, No Edema, No Gallop, No JVD, No Murmur, Normal Peripheral Pulses Gastrointestinal: Normal Bowel Sounds, No Organomegaly, No Pulsatile Mass, Non Tender, Soft Back: Normal Inspection, No CVA Tenderness, No Vertebral Tenderness Extremity: Normal Capillary Refill, Normal Inspection, Normal Range of Motion, Non Tender, No Calf Tenderness, No Pedal Edema Neurologic/Psychiatric: Alert, Oriented x3, No Motor/Sensory Deficits, design studio consultant II- XII Norm as Tested, Abnormal Gait, Depressed Affect, Motor Weakness Skin: Normal Color, Warm/Dry Lymphatic: No Adenopathy Results/Procedures Lab Patient resulted labs reviewed. FIM Transfers Therapy Code Descriptions/Definitions Functional [place] Measure: 0=Not Assessed/NA 4=Minimal Assistance 1=Total Assistance 5=Supervision or Setup 2=Maximal Assistance 6=Modified [place] 3=Moderate Assistance 7=Complete IndependenceSCALE: Activities may be completed with or without assistive devices. 6-Nwvvupgzoj-wvziaie completes the activity by him/herself with no assistance from a helper. 5-Set-up or Clean-up Assistance-helper sets up or cleans up; patient completes activity. [place] assists only prior to or following the activity. 4-Supervision or Touching Assistance-helper provides verbal cues and/or touching/steadying and/or contact guard assistance as patient completes activity. Assistance may be provided throughout the activity or intermittently. 3-Partial/Moderate Assistance-helper does LESS THAN HALF the effort. [place] lifts, holds or supports trunk or limbs, but provides less than half the effort. 2-Substantial/Maximal Assistance-helper does MORE THAN HALF the effort. [place] lifts or holds trunk or limbs and provides more than half the effort. 5-Grabrszsf-ssumnn does ALL the effort. Patient does none of the effort to complete the activity. Or, the assistance of 2 or more helpers is required for the patient to complete the activity. If activity was not attempted, code reason: 7-Patient Refused. 9-Not Applicable-not attempted and the patient did not perform the activity before the current illness, exacerbation or injury. 10-Not Attempted due to Environmental Limitations-(lack of equipment, weather restraints, etc.). 88-Not Attempted due to Medical Conditions or Safety Concerns. Roll Left to Right (QC): 6 Sit to Lying (QC): 6 (toward left like home) Sit to Stand (QC): 6 Chair/Ant-pb-Xdfiy Xfer(QC): 6 Car Transfer (QC): 6 Gait Training Does the Patient Walk?: Yes Distance: 120' x2 Walk 10 feet (QC): 6 Walk 50 ft with 2 Turns(QC): 6 Walk 150 ft (QC): 6 Walking 10ft/uneven surface-QC: 6 Gait Persons Needed: 0 Gait Assistive Device: FWW Wheelchair Training Does the Pt Use a Wheelchair?: No Wheel 50 ft with 2 turns (QC): 9 Wheel 150 ft (QC): 9 Stair Training Stair Training: Handrails/: 2 handrails #of Steps: 4 1 Step (curb) (QC): 4 4 Steps (QC): 4 12 Steps (QC): 88 Stairs: Pattern: Step to Balance Picking up an Object (QC): 88 ADL-Treatment Eating (QC): 6 Oral Hygiene (QC): 6 Shower/Bathe Self (QC): 5 (set up, pt able to wash/dry all parts.) Upper Body Dressing (QC): 6 (IND, pt gathered clothes from closet, doff/donned independently.) Lower Body Dressing (QC): 4 (SBA for safety, pt required verbal cue to sit down while doffing pants. Pt then able to doff/don pants using AE.) On/Off Footwear (QC): 4 (SBA for safety, pt required 1 verbal cue to sit down while doffing socks, pt able to doff/don using AE) Toileting Hygiene (QC): 6 Assessment/Plan Assessment and Plan Assess & Plan/Chief Complaint Assessment: s/p left total hip replacement Hypotension after surgery requiring ICU stay with transfusion CAD HTN HLP Anemia post op iron deficiency GERD BPH Plan: Pain control Home meds IRF protocol 08/20/20: Monitor lungs IS Pain control 08/20/20: Monitor closely Pain control Await iron level 08/21/20: Monitor SLUMS IV iron DC Wednesday08/22/20: Noted poor recall Monitor closely (1) Status post left hip replacement (2) CAD (coronary artery disease) (3) Hypertension (4) Hyperlipemia (5) BPH (benign prostatic hyperplasia) (6) Anemia (7) GERD (gastroesophageal reflux disease) LYNDA MARSHALL DO Aug 22, 2020 10:45
--- NOTE | 2020-08-22 11:05 | Physical Therapy Daily Note ---
PT Daily Note-Current Subjective Pt reclined in chair upon arrival. Pt agrees to PT and reports eager to DC on Wednesday. Pain Location: No Pain Reported Mental Status Patient Orientation: Person, Place, Time, Situation Attachments: Other-See Comments (Mask when out of room) Transfers SCALE: Activities may be completed with or without assistive devices. 0-Jsqqumadhi-szjshni completes the activity by him/herself with no assistance from a helper. 5-Set-up or Clean-up Assistance-helper sets up or cleans up; patient completes activity. [place] assists only prior to or following the activity. 4-Supervision or Touching Assistance-helper provides verbal cues and/or touching/steadying and/or contact guard assistance as patient completes activity. Assistance may be provided throughout the activity or intermittently. 3-Partial/Moderate Assistance-helper does LESS THAN HALF the effort. [place] lifts, holds or supports trunk or limbs, but provides less than half the effort. 2-Substantial/Maximal Assistance-helper does MORE THAN HALF the effort. [place] lifts or holds trunk or limbs and provides more than half the effort. 9-Dzvdeqgmh-qklycd does ALL the effort. Patient does none of the effort to complete the activity. Or, the assistance of 2 or more helpers is required for the patient to complete the activity. If activity was not attempted, code reason: 7-Patient Refused. 9-Not Applicable-not attempted and the patient did not perform the activity before the current illness, exacerbation or injury. 10-Not Attempted due to Environmental Limitations-(lack of equipment, weather restraints, etc.). 88-Not Attempted due to Medical Conditions or Safety Concerns. Sit to Stand (QC): 6 Gait Training Does the Patient Walk?: Yes Distance: 400', 100' Walk 10 feet (QC): 6 Walk 50 ft with 2 Turns(QC): 6 Walk 150 ft (QC): 6 Gait Persons Needed: 0 Gait Assistive Device: FWW Wheelchair Training Does the Pt Use a Wheelchair?: No Exercises Seated Therapy Exercises: Ankle pumps, Sit to stand, Long arc quads, Hip flexion, Glut set Seated Reps: 15 (2 sets) Treatments TF to standing. Pt amb. in hallway, takes RB as needed. Pt completes Seated Ex in chair in Therapy Gym. Pt amb. in hallway before returning to room to rest. Pt resting in recliner with all needs met, call light in hand. Assessment Current Status: Good Progress Pt is excited for DC on Wednesday and smita. tx well. PT Short Term Goals Short Term Goals Time Frame: Aug 26, 2020 Sit to lyin Lying to sitting on side of be: 5 Walk 150 feet: 5 4 steps: 4 PT Diagnostics Sales Developer Goals Jail Goals PT Diagnostics Sales Developer Goals Time Frame: September 04, 2020 Roll Left & Right (QC): 6 Sit to Lying (QC): 6 Lying-Sitting on Side/Bed(QC): 6 Sit to Stand (QC): 6 Chair/Nxw-kh-Ynnnz Xfer(QC): 6 Toilet Transfer (QC): 6 Car Transfer (QC): 6 Does the Patient Walk: Yes Walk 10 feet (QC): 6 Walk 50ft with 2 Turns (QC): 6 Walk 150 ft (QC): 6 Walking 10ft on Uneven Surface: 6 1 Step (curb) (QC): 6 4 Steps (QC): 6 12 Steps (QC): 6 Picking up an Object (QC): 4 Does the Pt use WC or Scooter?: No Wheel 50 feet with 2 turns (QC: 9 Wheel 150 feet: 9 PT Plan Treatment/Plan Treatment Plan: Continue Plan of Care Treatment Plan: Bed Mobility, Education, Functional Activity Leonela, Functional Strength, Group Therapy, Gait, Safety, Therapeutic Exercise, Transfers Treatment Duration: September 04, 2020 Frequency: At least 5 of 7 days/Wk (IRF) Estimated Hrs Per Day: 1.5 hours per day Patient and/or Family Agrees t: Yes Time/GCodes Time In: 1000 Time Out: 1100 Total Billed Treatment Time: 60 Total Billed Treatment 1, GT (20m), FA (15m) & EX x2 (25m) TONY NOLASCO DIRECTOR OF PLANNING Aug 22, 2020 11:04
--- NOTE | 2020-08-22 13:27 | Physical Therapy Daily Note ---
PT Daily Note-Current Subjective Patient reports mild, unrated pain in L quad, was seated in recliner pre tx. Patient consents to therapy . Appearance Patient seated upright in chair post tx, with call button within reach and all needs met. Mental Status Patient Orientation: Person, Place, Time, Normal For Age Transfers SCALE: Activities may be completed with or without assistive devices. 9-Tukhneevqz-gtwqcok completes the activity by him/herself with no assistance from a helper. 5-Set-up or Clean-up Assistance-helper sets up or cleans up; patient completes activity. [place] assists only prior to or following the activity. 4-Supervision or Touching Assistance-helper provides verbal cues and/or touching/steadying and/or contact guard assistance as patient completes activity. Assistance may be provided throughout the activity or intermittently. 3-Partial/Moderate Assistance-helper does LESS THAN HALF the effort. [place] lifts, holds or supports trunk or limbs, but provides less than half the effort. 2-Substantial/Maximal Assistance-helper does MORE THAN HALF the effort. [place] lifts or holds trunk or limbs and provides more than half the effort. 5-Bvvpjbwtu-tuvkfv does ALL the effort. Patient does none of the effort to complete the activity. Or, the assistance of 2 or more helpers is required for the patient to complete the activity. If activity was not attempted, code reason: 7-Patient Refused. 9-Not Applicable-not attempted and the patient did not perform the activity before the current illness, exacerbation or injury. 10-Not Attempted due to Environmental Limitations-(lack of equipment, weather restraints, etc.). 88-Not Attempted due to Medical Conditions or Safety Concerns. Sit to Stand (QC): 6 Chair/Xqt-dv-Xlcgg Xfer(QC): 6 Gait Training Does the Patient Walk?: Yes Distance: 120' x2 Walk 10 feet (QC): 6 Walk 50 ft with 2 Turns(QC): 6 Gait Assistive Device: FWW Patient is steady with gait, no LOB noted. Mild antalgic gait noted with L LE weight-bearing, but gait pattern remains reciprocal. Exercises NuStep Minutes: 16 NuStep Workload: 4 Treatments LE strengthening, gait, transfers Assessment Current Status: Good Progress Patient shows good endurance with NuStep, able to tolerate increased workload PT Short Term Goals Short Term Goals Time Frame: Aug 26, 2020 Sit to lyin Lying to sitting on side of be: 5 Walk 150 feet: 5 4 steps: 4 PT Fiber Optics Engineer Goals Fiber Optics Engineer Goals PT Prison Goals Time Frame: September 04, 2020 Roll Left & Right (QC): 6 Sit to Lying (QC): 6 Lying-Sitting on Side/Bed(QC): 6 Sit to Stand (QC): 6 Chair/Kvq-tx-Pxjvz Xfer(QC): 6 Toilet Transfer (QC): 6 Car Transfer (QC): 6 Does the Patient Walk: Yes Walk 10 feet (QC): 6 Walk 50ft with 2 Turns (QC): 6 Walk 150 ft (QC): 6 Walking 10ft on Uneven Surface: 6 1 Step (curb) (QC): 6 4 Steps (QC): 6 12 Steps (QC): 6 Picking up an Object (QC): 4 Does the Pt use WC or Scooter?: No Wheel 50 feet with 2 turns (QC: 9 Wheel 150 feet: 9 PT Plan Problem List Problem List: Activity Tolerance, Functional Strength, Safety, Balance, Gait, Transfer, Bed Mobility, ROM Treatment/Plan Treatment Plan: Continue Plan of Care Treatment Plan: Bed Mobility, Education, Functional Activity Leonela, Functional Strength, Group Therapy, Gait, Safety, Therapeutic Exercise, Transfers Treatment Duration: September 04, 2020 Frequency: At least 5 of 7 days/Wk (IRF) Estimated Hrs Per Day: 1.5 hours per day Patient and/or Family Agrees t: Yes Safety Risks/Education Patient Education: Gait Training, Transfer Techniques, Correct Positioning, Safety Issues Teaching Recipient: Patient Teaching Methods: Demonstration, Discussion Response to Teaching: Verbalize Understanding, Return Demonstration Time/GCodes Time In: 1300 Time Out: 1330 Total Billed Treatment Time: 30 Total Billed Treatment 1 visit: FA: 14' EX: 16' LUZ BOYD PT Aug 22, 2020 13:27
[2020-08-22 20:00] VITALS: BP 132/76
[2020-08-22] MEDS: TERAZOSIN 5 MG (HYTRIN) CAPSULE PO SCH (21:05)
[2020-08-22] MEDS: FAMOTIDINE 20 MG (PEPCID) TABLET PO SCH (21:05)
[2020-08-23] MEDS: MULTIVIT W/MINERALS TAB (THERAGRAN M) PO SCH (06:11)
[2020-08-23 08:00] VITALS: BP 135/72
--- NOTE | 2020-08-23 08:21 | Occupational Ther Daily Note ---
OT Current Status-Daily Note Subjective Pt seated in recliner, agreeable to OT Tx. Pt reports pain in L hip 5/10. during shower, pt notices bruising on posterior aspect of L calf. Pt concerned of possible DVT, OT notified pt's nurse. ADL-Treatment Therapy Code Descriptions/Definitions Functional [place] Measure: 0=Not Assessed/NA 4=Minimal Assistance 1=Total Assistance 5=Supervision or Setup 2=Maximal Assistance 6=Modified [place] 3=Moderate Assistance 7=Complete IndependenceSCALE: Activities may be completed with or without assistive devices. 4-Iboirazegg-ptuwsgj completes the activity by him/herself with no assistance from a helper. 5-Set-up or Clean-up Assistance-helper sets up or cleans up; patient completes activity. [place] assists only prior to or following the activity. 4-Supervision or Touching Assistance-helper provides verbal cues and/or teo antwan/steadying and/or contact guard assistance as patient completes activity. Assistance may be provided throughout the activity or intermittently. 3-Partial/Moderate Assistance-helper does LESS THAN HALF the effort. [place] lifts, holds or supports trunk or limbs, but provides less than half the effort. 2-Substantial/Maximal Assistance-helper does MORE THAN HALF the effort. [place] lifts or holds trunk or limbs and provides more than half the effort. 4-Zigenoyoe-cwqvoq does ALL the effort. Patient does none of the effort to complete the activity. Or, the assistance of 2 or more helpers is required for the patient to complete the activity. If activity was not attempted, code reason: 7-Patient Refused. 9-Not Applicable-not attempted and the patient did not perform the activity before the current illness, exacerbation or injury. 10-Not Attempted due to Environmental Limitations-(lack of equipment, weather restraints, etc.). 88-Not Attempted due to Medical Conditions or Safety Concerns. Eating (QC): 6 (Pt reports no difficulty eating breakfast, able to use utensils, open containers, cut food) Oral Hygiene (QC): 6 (IND standing at sink) Bathing Location: L Arm, R Arm, L Upper Leg, R Upper Leg, L Lower Leg (including foot), R Lower Leg (including foot), Chest, Abdomen, Buttocks, Perineal Area Shower/Bathe Self (QC): 5 (set up assist) Upper Body Dressing (QC): 6 (Pt gathered clothes, doffed/donned independently) Lower Body Dressing (QC): 6 (IND, pt gathered clothes, doff/donned LE clothing using AE) On/Off Footwear: 6 (Pt doff/donned socks and slip on shoes, using AE as needed) Toileting Hygiene (QC): 6 (Pt stood at toilet to urinate IND. Pt also able to complete clothing management and hygiene with BM.) Toilet Transfer (QC): 6 Other Treatment Pt seated in recliner, used FWW to gather clothes and ambulate to shower. Pt stood at toilet to urinate, then transferred to SC. Pt doffed clothes, OT covered pt's IV site and dressing prior to shower. Pt completed showering, then transferred to chair to get dressed. Pt stood at sink to complete oral care and shaving IND. Pt states need to use toilet, transferring onto toilet IND. Pt completed toileting, then used FWW to return to recliner. Post tx, pt seated in recliner, call light in reach and all needs met, nurse present. Education OT Patient Education: Correct positioning, Modified ADL techniques, Progress toward Goal/Update tx plan, Purpose of tx/functional activities Teaching Recipient: Patient Teaching Methods: Discussion Response to Teaching: Verbalize Understanding OT Short Term Goals Short Term Goals Time Frame: Aug 28, 2020 Lower body dressin Putting on/taking off footwear: 4 OT Life Sciences Instructor Goals Life Sciences Instructor Goals Time Frame: September 06, 2020 Eating (QC): 6 (met) Oral Hygiene (QC): 6 (met) Toileting Hygiene (QC): 6 (met) Shower/Bathe Self (QC): 6 (not met, set up) Upper Body Dressing (QC): 6 (met) Lower Body Dressing (QC): 6 (met) On/Off Footwear (QC): 6 (met) Additional Goals: 1-Demonstrate ADL Tasks, 2-Verbalize Understanding, 3- ImproveStrength/Leonela 1=Demonstrate adherence to instructed precautions during ADL tasks. 2=Patient will verbalize/demonstrate understanding of assistive devices/modifications for ADL. 3=Patient will improve strength/tolerance for activity to enable patient to perform ADL's. OT Education/Plan Problem List/Assessment Assessment: Decreased Activ Tolerance, Decreased UE Strength, Impaired I ADL's Discharge Recommendations Plan/Recommendations: Continue POC Treatment Plan/Plan of Care Patient would benefit from OT for education, treatment and training to promote independence in ADL's, mobility, safety and/or upper extremity function for ADL's. Plan of Care: ADL Retraining, Functional Mobility, Group Exercise/Act as Ind, UE Funct Exercise/Act Treatment Duration: September 06, 2020 Frequency: At least 5 of 7 days/Wk (IRF) Estimated Hrs Per Day: 1.5 hours per day Rehab Potential: Good Time/GCodes Start Time: 08:00 Stop Time: 09:15 Total Time Billed (hr/min): 75 Billed Treatment Time 1, ADL 5 MILLIE BRANCH OT Aug 23, 2020 08:21
--- NOTE | 2020-08-23 08:25 | Speech Therapy Daily Note ---
Speech Daily Progress Note Subjective Date Seen by Provider: Aug 23, 2020 Time Seen by Provider: 00:30 Pt was alert and pleasant. Pt agreed to ST services. Objective Patient completed problem solving tasks related to daily needs with 100% with no cues. Assessment Assessment Current Status: Good Progress Treatment Plan Discontinue ST, Goals Met Speech Short Term Goals Short Term Goals Short Term Goals 1.) Patient will complete memory tasks related to daily needs with 90% or greater with minimal cues. 2.) Patient will complete problem solving tasks related to daily needs with 90% or greater with minimal cues. 3.) Patient will complete safety awareness tasks related to daily needs with 90% or greater with minimal cues. Speech Space Planner Goals Space Planner Goals Patient will improve cognitive-communication skills necessary for safety and daily living tasks with minimal assist. Speech-Plan Patient/Family Goals Patient/Family Goals: Pt plans to go home upon D/C from ARU. Treatment Plan Speech Therapy Treatment Plan: Discontinue ST, Goals Met Treatment Duration: Aug 26, 2020 Frequency: 4 times per week (4-5x per week) Estimated Hrs Per Day: Other Rehab Potential: Good Barriers to Learning: Medical status and age Pt/Family Agrees to Plan: Yes Safety Risks/Education Teaching Recipient: Patient Teaching Methods: Demonstration, Discussion Response to Teaching: Verbalize Understanding, Return Demonstration Education Topics Provided: Safety and cognitive communication Time Speech Therapy Time In: 13:00 Speech Therapy Time Out: 13:30 Total Billed Time: 30 Billed Treatment Time 1, SLTS No QUALITY CODES: EXPRESSION OF WANTS/NEEDS: 4 UNDERSTANDING VERBAL CONTENT: 4 BRIEF INTERVIEW MENTAL STATUS YES REPETITION OF 3 WORDS 3 TEMPORAL ORIENTATION: YEAR: CORRECT, MONTH: CORRECT, DAY: CORRECT RECALL SOCK: YES WITH CUE, COLOR: YES WITH CUE, BED: YES WITH CUE MEMORY/RECALL ABILITY: SEASON, LOCATION OF ROOM, THAT HE IS IN THE HOSPITAL AMIE TIAN Aug 23, 2020 08:25
[2020-08-23] MEDS: IRON SUCROSE 200 MG/10 ML (VENOFER) VIAL IV SCH (09:05)
[2020-08-23] MEDS: meTOprolol TARTRATE 50 MG (LOPRESSOR) TAB PO SCH ×2 (09:05→20:56)
[2020-08-23] MEDS: CYANOCOBALAMIN 1,000 MCG (VITAMIN B-12) TABLET PO SCH (09:05)
[2020-08-23] MEDS: CLOPIDOGREL 75 MG (PLAVIX) TABLET PO SCH (09:06)
[2020-08-23] MEDS: PANTOPRAZOLE 40 MG (PROTONIX) TAB PO SCH (09:06)
[2020-08-23] MEDS: ISOSORBIDE MONONITRATE 30 MG (IMDUR) TAB PO SCH (09:06)
[2020-08-23] MEDS: FENOFIBRATE 134 MG (LOFIBRA) CAPSULE PO SCH (09:06)
[2020-08-23] MEDS: GABAPENTIN 100 MG (NEURONTIN) CAP PO SCH ×2 (09:06→20:56)
[2020-08-23] MEDS: RANOLAZINE ER 500 MG TAB (RANEXA) PO SCH ×2 (09:06→20:56)
[2020-08-23] MEDS: VITAMIN D3 125 MCG (5,000 UNITS) CAPSULE PO SCH (09:06)
[2020-08-23] MEDS: FOLIC ACID 1 MG TAB PO SCH (09:06)
[2020-08-23] MEDS: SENNA W/DOCUSATE (SENOKOT S) TABLET PO SCH ×2 (09:06→20:59)
[2020-08-23] MEDS: ASPIRIN E.C. 81 MG (ECOTRIN) TAB PO SCH (09:06)
[2020-08-23] MEDS: DOCUSATE SODIUM 100 MG (COLACE) CAP PO SCH ×2 (09:06→20:58)
[2020-08-23] MEDS: ACETAMINOPHEN 325 MG TABLET PO PRN (09:08)
[2020-08-23] MEDS: polyethylene glycoL POWDER 17 GM (MIRALAX) PACK PO SCH ×2 (09:16→20:58)
--- NOTE | 2020-08-23 10:36 | PM&R Progress Note ---
Subjective HPI/CC On Admission Date Seen by Provider: Aug 23, 2020 Time Seen by Provider: 12:00 Subjective/Events-last exam 08/23/20: Doing well Leg pain improved BM+ Eating well 08/22/20: Pt doing pretty well Does not recall receiving an iron infusion and hes had two iron infusions this far Tolerating everything very well Feels like he is improving DC is planned for Wednesday08/21/20: Pt doing pretty well IV iron initiated due to low iron level Wednesday discharge planned Tylenol and Ultram helping with the pain Slums score is 08/20/20: Pt doing a lot better Hgb 8.4 Iron pending 2 liters of oxygen at night Crackles in his lungs, will get an IS for him to use and he does report that is chronic Review of Systems General: Fatigue, Malaise Neurological: Weakness Objective Exam Vital Signs Vital Signs Date Time Temp Pulse Resp B/P (MAP) Pulse Ox O2 Delivery O2 Flow Rate FiO2 08/23/20 20:58 Room Air 08/23/20 19:26 36.4 93 16 125/74 (91) 97 Capillary Refill : General Appearance: No Apparent Distress, WD/WN, Chronically ill HEENT: PERRL/EOMI, Normal ENT Inspection, Pharynx Normal Neck: Full Range of Motion, Normal Inspection, Non Tender, Supple, Carotid Bruit Respiratory: Chest Non Tender, No Accessory Muscle Use, No Respiratory Distress, Crackles Cardiovascular: Regular Rate, Rhythm, No Edema, No Gallop, No JVD, No Murmur, Normal Peripheral Pulses Gastrointestinal: Normal Bowel Sounds, No Organomegaly, No Pulsatile Mass, Non Tender, Soft Back: Normal Inspection, No CVA Tenderness, No Vertebral Tenderness Extremity: Normal Capillary Refill, Normal Inspection, Normal Range of Motion, Non Tender, No Calf Tenderness, No Pedal Edema Neurologic/Psychiatric: Alert, Oriented x3, No Motor/Sensory Deficits, able bodied seaman II- XII Norm as Tested, Abnormal Gait, Depressed Affect, Motor Weakness Skin: Normal Color, Warm/Dry Lymphatic: No Adenopathy Results/Procedures Lab Patient resulted labs reviewed. FIM Transfers Therapy Code Descriptions/Definitions Functional [place] Measure: 0=Not Assessed/NA 4=Minimal Assistance 1=Total Assistance 5=Supervision or Setup 2=Maximal Assistance 6=Modified [place] 3=Moderate Assistance 7=Complete IndependenceSCALE: Activities may be completed with or without assistive devices. 7-Uplcnkxjgf-sglhcqe completes the activity by him/herself with no assistance from a helper. 5-Set-up or Clean-up Assistance-helper sets up or cleans up; patient completes activity. [place] assists only prior to or following the activity. 4-Supervision or Touching Assistance-helper provides verbal cues and/or touching/steadying and/or contact guard assistance as patient completes activity. Assistance may be provided throughout the activity or intermittently. 3-Partial/Moderate Assistance-helper does LESS THAN HALF the effort. [place] lifts, holds or supports trunk or limbs, but provides less than half the effort. 2-Substantial/Maximal Assistance-helper does MORE THAN HALF the effort. [place] lifts or holds trunk or limbs and provides more than half the effort. 7-Qscwjnkoh-kvmcwt does ALL the effort. Patient does none of the effort to complete the activity. Or, the assistance of 2 or more helpers is required for the patient to complete the activity. If activity was not attempted, code reason: 7-Patient Refused. 9-Not Applicable-not attempted and the patient did not perform the activity before the current illness, exacerbation or injury. 10-Not Attempted due to Environmental Limitations-(lack of equipment, weather restraints, etc.). 88-Not Attempted due to Medical Conditions or Safety Concerns. Roll Left to Right (QC): 6 Sit to Lying (QC): 6 (toward left like home) Sit to Stand (QC): 6 Chair/Zhp-tp-Rwglr Xfer(QC): 6 Car Transfer (QC): 6 Gait Training Does the Patient Walk?: Yes Distance: 120' x2 Walk 10 feet (QC): 6 Walk 50 ft with 2 Turns(QC): 6 Walk 150 ft (QC): 6 Walking 10ft/uneven surface-QC: 6 Gait Persons Needed: 0 Gait Assistive Device: FWW Wheelchair Training Does the Pt Use a Wheelchair?: No Wheel 50 ft with 2 turns (QC): 9 Wheel 150 ft (QC): 9 Stair Training Stair Training: Handrails/: 2 handrails #of Steps: 4 1 Step (curb) (QC): 4 4 Steps (QC): 4 12 Steps (QC): 88 Stairs: Pattern: Step to Balance Picking up an Object (QC): 88 ADL-Treatment Eating (QC): 6 (Pt reports no difficulty eating breakfast, able to use utensils, open containers, cut food) Oral Hygiene (QC): 6 (IND standing at sink) Bathing Location: L Arm, R Arm, L Upper Leg, R Upper Leg, L Lower Leg (including foot), R Lower Leg (including foot), Chest, Abdomen, Buttocks, Perineal Area Shower/Bathe Self (QC): 5 (set up assist) Upper Body Dressing (QC): 6 (Pt gathered clothes, doffed/donned independently) Lower Body Dressing (QC): 6 (IND, pt gathered clothes, doff/donned LE clothing using AE) On/Off Footwear (QC): 6 (Pt doff/donned socks and slip on shoes, using AE as needed) Toileting Hygiene (QC): 6 (Pt stood at toilet to urinate IND. Pt also able to complete clothing management and hygiene with BM.) Toilet Transfer (QC): 6 Assessment/Plan Assessment and Plan Assess & Plan/Chief Complaint Assessment: s/p left total hip replacement Hypotension after surgery requiring ICU stay with transfusion CAD HTN HLP Anemia post op iron deficiency GERD BPH Plan: Pain control Home meds IRF protocol 08/20/20: Monitor lungs IS Pain control 08/20/20: Monitor closely Pain control Await iron level 08/21/20: Monitor SLUMS IV iron DC Wednesday08/22/20: Noted poor recall Monitor closely 08/23/20: Doing well Monitor closely (1) Status post left hip replacement (2) CAD (coronary artery disease) (3) Hypertension (4) Hyperlipemia (5) BPH (benign prostatic hyperplasia) (6) Anemia (7) GERD (gastroesophageal reflux disease) LYNDA MARSHALL DO Aug 23, 2020 10:35
--- NOTE | 2020-08-23 11:55 | Physical Therapy Daily Note ---
PT Daily Note-Current Subjective Pt is waking up from nap upon arrival but agrees to PT. Reports having no pain and feels like he is getting stronger and when he gets home he needs to continue to get stronger. Pt reports he is eager to go home and thinks he will be fine when he goes home. Pain Numeric Pain Scale: 0-No Pain Mental Status Patient Orientation: Person, Place, Time, Situation Attachments: Other-See Comments (mask while out of room) Transfers SCALE: Activities may be completed with or without assistive devices. 4-Kvwuejimoi-wjlgwso completes the activity by him/herself with no assistance from a helper. 5-Set-up or Clean-up Assistance-helper sets up or cleans up; patient completes activity. [place] assists only prior to or following the activity. 4-Supervision or Touching Assistance-helper provides verbal cues and/or touching/steadying and/or contact guard assistance as patient completes activity. Assistance may be provided throughout the activity or intermittently. 3-Partial/Moderate Assistance-helper does LESS THAN HALF the effort. [place] lifts, holds or supports trunk or limbs, but provides less than half the effort. 2-Substantial/Maximal Assistance-helper does MORE THAN HALF the effort. [place] lifts or holds trunk or limbs and provides more than half the effort. 6-Sdnjvjoml-hmyiwx does ALL the effort. Patient does none of the effort to complete the activity. Or, the assistance of 2 or more helpers is required for the patient to complete the activity. If activity was not attempted, code reason: 7-Patient Refused. 9-Not Applicable-not attempted and the patient did not perform the activity before the current illness, exacerbation or injury. 10-Not Attempted due to Environmental Limitations-(lack of equipment, weather restraints, etc.). 88-Not Attempted due to Medical Conditions or Safety Concerns. Roll Left & Right (QC): 6 Sit to Lying (QC): 6 Lying to Sitting/Side of Bed(Q: 6 Sit to Stand (QC): 6 Chair/Vhs-ky-Guuzp Xfer(QC): 6 Toilet Transfer (QC): 6 Car Transfer (QC): 6 Pt uses UE's help assist L hip into flexion when needed during TFs Gait Training Does the Patient Walk?: Yes Distance: 85' x 1 200' x 2 Walk 10 feet (QC): 6 Walk 50 ft with 2 Turns(QC): 6 Walk 150 ft (QC): 5 Walking 10ft/uneven surface-QC: 6 Gait Persons Needed: 1 Gait Assistive Device: FWW Pt states that wide turns seem to help his hip Wheelchair Training Does the Pt Use a Wheelchair?: No Stair Training Stair Training: Handrails/: 2 handrails #of Steps: 4 1 Step (curb) (QC): 5 4 Steps (QC): 5 Stairs: Pattern: Step to needs occasional cues about going up w/ good leg and down w/ bad leg Exercises Seated Therapy Exercises: Ankle pumps, Sit to stand, Long arc quads, Hip flexion Seated Reps: 15 NuStep Minutes: 12 NuStep Workload: 4 Treatments Pt amb from to therapy gym and TF to nustep. Sit-stand and amb across uneven surface and then amb to stairs. Asc and desc then TF to mat. Rolls onto side for QC's then sits back up. After rest break pt amb down liu to windowsill and needs rest break. Perform seated exs and then performs figure 8's to practice turning. Then amb to simulated car and performs car TF. TF from car amb over curb, amb back to room for QC then performs more seated exs. Lunch arrives, call light in hand all needs met therapy departs. Assessment Current Status: Good Progress Seated marches pt used AAROM on L hip to help w/ weakness. Pt amb w/ antalgic gait on L leg and becomes more obvious when pt starts to fatigue. Amb w/ L shoulder higher than R shoulder possibly during to bearing more weight through LUE. Performed quad stretch in sitting to help w/ quad tightness. Pt did well w/ all QC's. PT Short Term Goals Short Term Goals Time Frame: Aug 26, 2020 Sit to lyin Lying to sitting on side of be: 5 Walk 150 feet: 5 4 steps: 4 PT Riprap Placing Supervisor Goals [place]ip[place] Placing Supervisor Goals PT Snf Goals Time Frame: September 04, 2020 Roll Left & Right (QC): 6 Sit to Lying (QC): 6 Lying-Sitting on Side/Bed(QC): 6 Sit to Stand (QC): 6 Chair/Fgs-cf-Irhtx Xfer(QC): 6 Toilet Transfer (QC): 6 Car Transfer (QC): 6 Does the Patient Walk: Yes Walk 10 feet (QC): 6 Walk 50ft with 2 Turns (QC): 6 Walk 150 ft (QC): 6 Walking 10ft on Uneven Surface: 6 1 Step (curb) (QC): 6 4 Steps (QC): 6 12 Steps (QC): 6 Picking up an Object (QC): 4 Does the Pt use WC or Scooter?: No Wheel 50 feet with 2 turns (QC: 9 Wheel 150 feet: 9 PT Plan Problem List Problem List: Activity Tolerance, Functional Strength Treatment/Plan Treatment Plan: Continue Plan of Care Treatment Plan: Bed Mobility, Education, Functional Activity Leonela, Functional Strength, Group Therapy, Gait, Safety, Therapeutic Exercise, Transfers Treatment Duration: September 04, 2020 Frequency: At least 5 of 7 days/Wk (IRF) Estimated Hrs Per Day: 1.5 hours per day Patient and/or Family Agrees t: Yes Safety Risks/Education Patient Education: Correct Positioning Teaching Recipient: Patient Teaching Methods: Demonstration, Discussion Response to Teaching: Verbalize Understanding, Return Demonstration Time/GCodes Time In: 1100 Time Out: 1200 Total Billed Treatment Time: 60 Total Billed Treatment 1, EX x 2 35m, GT 10m, FA 15m KEISHA HOLLINS HUMAN RESOURCES SAFETY MANAGER Aug 23, 2020 11:55
--- NOTE | 2020-08-23 15:44 | Physical Therapy Daily Note ---
PT Daily Note-Current Subjective Pt taking nap upon arrival but wakes up and agrees to PT. Reports that he ate too much at lunch time so needed a longer rest break after amb as he was slightly SOB. States that the farthest he will have to walk when he leaves here is less than 100' CHEESE WEIGHER informed him that walking is good for cardiovascular endurance and health concerns. Pain Location: No Pain Reported Mental Status Patient Orientation: Person, Place, Time, Situation Attachments: Other-See Comments (mask while out of room) Transfers SCALE: Activities may be completed with or without assistive devices. 2-Ovhbqaxhgq-xhjzumx completes the activity by him/herself with no assistance from a helper. 5-Set-up or Clean-up Assistance-helper sets up or cleans up; patient completes activity. [place] assists only prior to or following the activity. 4-Supervision or Touching Assistance-helper provides verbal cues and/or touching/steadying and/or contact guard assistance as patient completes activity. Assistance may be provided throughout the activity or intermittently. 3-Partial/Moderate Assistance-helper does LESS THAN HALF the effort. [place] lifts, holds or supports trunk or limbs, but provides less than half the effort. 2-Substantial/Maximal Assistance-helper does MORE THAN HALF the effort. [place] lifts or holds trunk or limbs and provides more than half the effort. 6-Uqvdjajcr-mquauh does ALL the effort. Patient does none of the effort to complete the activity. Or, the assistance of 2 or more helpers is required for the patient to complete the activity. If activity was not attempted, code reason: 7-Patient Refused. 9-Not Applicable-not attempted and the patient did not perform the activity before the current illness, exacerbation or injury. 10-Not Attempted due to Environmental Limitations-(lack of equipment, weather restraints, etc.). 88-Not Attempted due to Medical Conditions or Safety Concerns. Sit to Stand (QC): 5 Gait Training Does the Patient Walk?: Yes Distance: 200' x 2 Walk 10 feet (QC): 5 Walk 50 ft with 2 Turns(QC): 5 Walk 150 ft (QC): 5 Gait Assistive Device: FWW Pt gets fatigued and antalgic gait more noticeable the further he walks Exercises Seated Therapy Exercises: Ankle pumps, Long arc quads Seated Reps: 10 Treatments Pt sit-stand TF and amb 350ft x2 around unit and takes prolonged rest break performs seated exs and then continues amb and goes back to room. Assessment Current Status: Good Progress Pt needed longer to get his hip loosened up and going this afternoon before walking. Pt continues to deny having any pain this afternoon. Pt needed more of a rest break this afternoon but did well with distance of walks. Informed pt that at grocery store he could use motorized scooter if he was worried about his strength and endurance. Pt TF back to recliner all needs met and call light nearby when therapy departs. PT Short Term Goals Short Term Goals Time Frame: Aug 26, 2020 Sit to lyin Lying to sitting on side of be: 5 Walk 150 feet: 5 4 steps: 4 PT Nursing Home Goals Recreational Leader Goals PT Nursing Home Goals Time Frame: September 04, 2020 Roll Left & Right (QC): 6 Sit to Lying (QC): 6 Lying-Sitting on Side/Bed(QC): 6 Sit to Stand (QC): 6 Chair/Ydp-fz-Flkwb Xfer(QC): 6 Toilet Transfer (QC): 6 Car Transfer (QC): 6 Does the Patient Walk: Yes Walk 10 feet (QC): 6 Walk 50ft with 2 Turns (QC): 6 Walk 150 ft (QC): 6 Walking 10ft on Uneven Surface: 6 1 Step (curb) (QC): 6 4 Steps (QC): 6 12 Steps (QC): 6 Picking up an Object (QC): 4 Does the Pt use WC or Scooter?: No Wheel 50 feet with 2 turns (QC: 9 Wheel 150 feet: 9 PT Plan Problem List Problem List: Activity Tolerance, Functional Strength Treatment/Plan Treatment Plan: Continue Plan of Care Treatment Plan: Bed Mobility, Education, Functional Activity Leonela, Functional Strength, Group Therapy, Gait, Safety, Therapeutic Exercise, Transfers Treatment Duration: September 04, 2020 Frequency: At least 5 of 7 days/Wk (IRF) Estimated Hrs Per Day: 1.5 hours per day Patient and/or Family Agrees t: Yes Safety Risks/Education Patient Education: Correct Positioning, Safety Issues Teaching Recipient: Patient Teaching Methods: Demonstration, Discussion Response to Teaching: Verbalize Understanding, Return Demonstration Time/GCodes Time In: 1430 Time Out: 1445 Total Billed Treatment Time: 15 Total Billed Treatment 1, GT KEISHA HOLLINS CHEESE WEIGHER Aug 23, 2020 15:44
[2020-08-23 19:26] VITALS: BP 125/74
[2020-08-23] MEDS: TERAZOSIN 5 MG (HYTRIN) CAPSULE PO SCH (20:55)
[2020-08-23] MEDS: FAMOTIDINE 20 MG (PEPCID) TABLET PO SCH (20:56)
[2020-08-24 07:30] VITALS: BP 106/63
[2020-08-24] MEDS: ACETAMINOPHEN 325 MG TABLET PO PRN (08:21)
[2020-08-24] MEDS: FOLIC ACID 1 MG TAB PO SCH (08:21)
[2020-08-24] MEDS: GABAPENTIN 100 MG (NEURONTIN) CAP PO SCH ×2 (08:21→21:19)
[2020-08-24] MEDS: FENOFIBRATE 134 MG (LOFIBRA) CAPSULE PO SCH (08:21)
[2020-08-24] MEDS: VITAMIN D3 125 MCG (5,000 UNITS) CAPSULE PO SCH (08:21)
[2020-08-24] MEDS: CLOPIDOGREL 75 MG (PLAVIX) TABLET PO SCH (08:22)
[2020-08-24] MEDS: SENNA W/DOCUSATE (SENOKOT S) TABLET PO SCH ×2 (08:22→21:19)
[2020-08-24] MEDS: RANOLAZINE ER 500 MG TAB (RANEXA) PO SCH ×2 (08:22→21:19)
[2020-08-24] MEDS: PANTOPRAZOLE 40 MG (PROTONIX) TAB PO SCH (08:22)
[2020-08-24] MEDS: ASPIRIN E.C. 81 MG (ECOTRIN) TAB PO SCH (08:22)
[2020-08-24] MEDS: ISOSORBIDE MONONITRATE 30 MG (IMDUR) TAB PO SCH (08:22)
[2020-08-24] MEDS: DOCUSATE SODIUM 100 MG (COLACE) CAP PO SCH ×2 (08:23→21:19)
[2020-08-24] MEDS: polyethylene glycoL POWDER 17 GM (MIRALAX) PACK PO SCH ×2 (08:24→21:19)
[2020-08-24] MEDS: meTOprolol TARTRATE 50 MG (LOPRESSOR) TAB PO SCH ×2 (08:24→21:19)
[2020-08-24] MEDS: CYANOCOBALAMIN 1,000 MCG (VITAMIN B-12) TABLET PO SCH (08:27)
[2020-08-24] MEDS: MULTIVIT W/MINERALS TAB (THERAGRAN M) PO SCH (10:11)
[2020-08-24] MEDS: ZINC OXIDE 16% OINT (BUTT PASTE) 57 GM TUBE TOP PRN (10:25)
--- NOTE | 2020-08-24 12:55 | PM&R Progress Note ---
Subjective HPI/CC On Admission Date Seen by Provider: Aug 24, 2020 Time Seen by Provider: 12:45 Subjective/Events-last exam 08/24/20: DC planned for tomorrow Monitor closely 08/23/20: Doing well Leg pain improved BM+ Eating well 08/22/20: Pt doing pretty well Does not recall receiving an iron infusion and hes had two iron infusions this far Tolerating everything very well Feels like he is improving DC is planned for Wednesday08/21/20: Pt doing pretty well IV iron initiated due to low iron level Wednesday discharge planned Tylenol and Ultram helping with the pain Slums score is 08/20/20: Pt doing a lot better Hgb 8.4 Iron pending 2 liters of oxygen at night Crackles in his lungs, will get an IS for him to use and he does report that is chronic Review of Systems General: Fatigue Objective Exam Vital Signs Vital Signs Date Time Temp Pulse Resp B/P (MAP) Pulse Ox O2 Delivery O2 Flow Rate FiO2 08/24/20 21:29 95 Room Air 08/24/20 19:42 36.8 86 20 143/75 (97) Capillary Refill : General Appearance: No Apparent Distress, WD/WN, Chronically ill HEENT: PERRL/EOMI, Normal ENT Inspection, Pharynx Normal Neck: Full Range of Motion, Normal Inspection, Non Tender, Supple, Carotid Bruit Respiratory: Chest Non Tender, No Accessory Muscle Use, No Respiratory Distress, Crackles Cardiovascular: Regular Rate, Rhythm, No Edema, No Gallop, No JVD, No Murmur, Normal Peripheral Pulses Gastrointestinal: Normal Bowel Sounds, No Organomegaly, No Pulsatile Mass, Non Tender, Soft Back: Normal Inspection, No CVA Tenderness, No Vertebral Tenderness Extremity: Normal Capillary Refill, Normal Inspection, Normal Range of Motion, Non Tender, No Calf Tenderness, No Pedal Edema Neurologic/Psychiatric: Alert, Oriented x3, No Motor/Sensory Deficits, banking manager II- XII Norm as Tested, Abnormal Gait, Depressed Affect, Motor Weakness Skin: Normal Color, Warm/Dry Lymphatic: No Adenopathy Results/Procedures Lab Patient resulted labs reviewed. FIM Transfers Therapy Code Descriptions/Definitions Functional [place] Measure: 0=Not Assessed/NA 4=Minimal Assistance 1=Total Assistance 5=Supervision or Setup 2=Maximal Assistance 6=Modified [place] 3=Moderate Assistance 7=Complete IndependenceSCALE: Activities may be completed with or without assistive devices. 3-Gecwdheqbn-qqdhfkb completes the activity by him/herself with no assistance from a helper. 5-Set-up or Clean-up Assistance-helper sets up or cleans up; patient completes activity. [place] assists only prior to or following the activity. 4-Supervision or Touching Assistance-helper provides verbal cues and/or touching/steadying and/or contact guard assistance as patient completes activity. Assistance may be provided throughout the activity or intermittently. 3-Partial/Moderate Assistance-helper does LESS THAN HALF the effort. [place] lifts, holds or supports trunk or limbs, but provides less than half the effort. 2-Substantial/Maximal Assistance-helper does MORE THAN HALF the effort. [place] lifts or holds trunk or limbs and provides more than half the effort. 3-Ddadppxku-hpdgae does ALL the effort. Patient does none of the effort to com plete the activity. Or, the assistance of 2 or more helpers is required for the patient to complete the activity. If activity was not attempted, code reason: 7-Patient Refused. 9-Not Applicable-not attempted and the patient did not perform the activity before the current illness, exacerbation or injury. 10-Not Attempted due to Environmental Limitations-(lack of equipment, weather restraints, etc.). 88-Not Attempted due to Medical Conditions or Safety Concerns. Roll Left to Right (QC): 6 Sit to Lying (QC): 6 Sit to Stand (QC): 5 Chair/Zvl-il-Krdkj Xfer(QC): 6 Car Transfer (QC): 6 Gait Training Does the Patient Walk?: Yes Distance: 200' x 2 Walk 10 feet (QC): 5 Walk 50 ft with 2 Turns(QC): 5 Walk 150 ft (QC): 5 Walking 10ft/uneven surface-QC: 6 Gait Persons Needed: 1 Gait Assistive Device: FWW Wheelchair Training Does the Pt Use a Wheelchair?: No Wheel 50 ft with 2 turns (QC): 9 Wheel 150 ft (QC): 9 Stair Training Stair Training: Handrails/: 2 handrails #of Steps: 4 1 Step (curb) (QC): 5 4 Steps (QC): 5 12 Steps (QC): 88 Stairs: Pattern: Step to Balance Picking up an Object (QC): 88 ADL-Treatment Eating (QC): 6 (Pt reports no difficulty eating breakfast, able to use utensils, open containers, cut food) Oral Hygiene (QC): 6 (IND standing at sink) Bathing Location: L Arm, R Arm, L Upper Leg, R Upper Leg, L Lower Leg (including foot), R Lower Leg (including foot), Chest, Abdomen, Buttocks, Perineal Area Shower/Bathe Self (QC): 5 (set up assist) Upper Body Dressing (QC): 6 (Pt gathered clothes, doffed/donned independently) Lower Body Dressing (QC): 6 (IND, pt gathered clothes, doff/donned LE clothing using AE) On/Off Footwear (QC): 6 (Pt doff/donned socks and slip on shoes, using AE as needed) Toileting Hygiene (QC): 6 (Pt stood at toilet to urinate IND. Pt also able to complete clothing management and hygiene with BM.) Toilet Transfer (QC): 6 Assessment/Plan Assessment and Plan Assess & Plan/Chief Complaint Assessment: s/p left total hip replacement Hypotension after surgery requiring ICU stay with transfusion CAD HTN HLP Anemia post op iron deficiency GERD BPH Cognitive deficiency Plan: Pain control Home meds IRF protocol 08/20/20: Monitor lungs IS Pain control 08/20/20: Monitor closely Pain control Await iron level 08/21/20: Monitor SLUMS IV iron DC Wednesday08/22/20: Noted poor recall Monitor closely 08/23/20: Doing well Monitor closely 08/24/20: DC tomorrow (1) Status post left hip replacement (2) CAD (coronary artery disease) (3) Hypertension (4) Hyperlipemia (5) BPH (benign prostatic hyperplasia) (6) Anemia (7) GERD (gastroesophageal reflux disease) LYNDA MARSHALL DO Aug 24, 2020 12:55
[2020-08-24 19:42] VITALS: BP 143/75
[2020-08-24] MEDS ORDERED: FOLI1TAB33 PO (20:18)
[2020-08-24] MEDS ORDERED: ZINC28PA TOP (20:18)
[2020-08-24] MEDS ORDERED: METO50TA15 PO (20:18)
[2020-08-24] MEDS ORDERED: GABA-486 PO (20:18)
[2020-08-24] MEDS ORDERED: MULT1TAB63 PO (20:18)
--- NOTE | 2020-08-24 20:20 | D/C HH Face to Face Order ---
D/C Face to Face Orders Reconcile Patient Problems Problems Reviewed?: Yes Instructions for Patient Via [facility], Patient Instructions/FollowUp: PCP 1 week Physician to follow Patient: Jeremias Discharge Diet for Home: Cardiac Diet Patient Problems: Left hip replacement Anemia Patient Data-Allergies,Ht & Wt Patient Allergies: Coded Allergies: No Known Allergies (Verified Allergy, Unknown, 08/19/20) Home Health Need/Face to Face Date of Face to Face: Aug 25, 2020 Clinical Findings: Instability, Muscle weakness, Pain with ambulation, Unsteady gait I have seen Pt pimc-yh-htdl: Yes Discharged To: Home Diagnosis/Conditions: Left hip replacement Anemia Patient is Homebound due to: [place] fall risk due to instabilty, Muscle weakness, Pain w/ambulation Homebound Status Due to the above stated illness, injury or surgical procedure (medical condition or diagnosis) and associated clinical findings, the patient is homebound because of his/her inability to leave home except with aid of a matthews pportive device and/or person AND leaving the home requires a considerable and taxing effort or is medically contraindicated. Pt req the following assistanc: Walker Home Health Nursing Orders Home Health Services Order: Nursing Services, Final Tester-Evaluate & Treat, Physical Therapy-Evaluate & Treat Home Health Infusion Therapy Line Start Date: Aug 21, 2020 Certify Stmt I certify that this patient is under my care and that I, a nurse practitioner or a physician; a family readiness support assistant working with me, had a face to face encounter that - meets the physician face to face encounter requirements with this patient as dated. LYNDA MARSHALL DO Aug 24, 2020 20:20
[2020-08-24] MEDS: TERAZOSIN 5 MG (HYTRIN) CAPSULE PO SCH (21:19)
[2020-08-24] MEDS: FAMOTIDINE 20 MG (PEPCID) TABLET PO SCH (21:19)
--- NOTE | 2020-08-25 06:25 | Discharge Summary ---
Diagnosis/Chief Complaint Date of Admission Aug 19, 2020 at 14:10 Date of Discharge Discharge Date: Aug 25, 2020 Discharge Diagnosis Assessment: s/p left total hip replacement Hypotension after surgery requiring ICU stay with transfusion CAD HTN HLP Anemia post op iron deficiency GERD BPH Plan: Pain control Home meds IRF protocol 08/20/20: Monitor lungs IS Pain control 08/20/20: Monitor closely Pain control Await iron level 08/21/20: Monitor SLUMS IV iron DC Wednesday08/22/20: Noted poor recall Monitor closely 08/23/20: Doing well Monitor closely (1) Status post left hip replacement (2) CAD (coronary artery disease) (3) Hypertension (4) Hyperlipemia (5) BPH (benign prostatic hyperplasia) (6) Anemia (7) GERD (gastroesophageal reflux disease) Discharge Summary Discharge Physical Examination Allergies: Coded Allergies: No Known Allergies (Verified Allergy, Unknown, 08/19/20) Vitals & I&Os Vital Signs Date Time Temp Pulse Resp B/P (MAP) Pulse Ox O2 Delivery O2 Flow Rate FiO2 08/25/20 11:33 36.6 85 18 112/65 97 Room Air General Appearance: Alert, Oriented X3, Cooperative Respiratory: Clear to Auscultation Cardiovascular: Regular Rate Neuro: Normal Gait, Normal Speech, Strength at 5/5 X4 Ext Psych/Mental Status: Mental Status NL Hospital Course Was the Problem List Reviewed?: Yes Standard hospital course after left hip replacement with ICU stay post op for hypotension and required 1 unit of blood. Patient was able to participate in therapy and was noted to have SLUMS . Patient received 3 iron infusions prior to DC. Overall he did well in rehab and was able to DC to home with . Labs (last 24 hrs) Laboratory Tests 08/20/20 04:58: White Blood Count 8.4, Red Blood Count 2.58L, Hemoglobin 8.4L, Hematocrit 26L, Mean Corpuscular Volume 101H, Mean Corpuscular Hemoglobin 33, Mean Corpuscular Hemoglobin Concent 32, Red Cell Distribution Width 14.8H, Platelet Count 310, Mean Platelet Volume 10.3, Immature Granulocyte % (Auto) 1, Neutrophils (%) (Auto) 69, Lymphocytes (%) (Auto) 14, Monocytes (%) (Auto) 9, Eosinophils (%) (Auto) 6, Basophils (%) (Auto) 1, Neutrophils # (Auto) 5.8, Lymphocytes # (Auto) 1.2, Monocytes # (Auto) 0.8, Eosinophils # (Auto) 0.5H, Basophils # (Auto) 0.0, Immature Granulocyte # (Auto) 0.0, Sodium Level 135, Potassium Level 4.3, Chloride Level 101, Carbon Dioxide Level 22, Anion Gap 12, Blood Urea Nitrogen 21H, Creatinine 1.21, Estimat Glomerular Filtration Rate 58, BUN/Creatinine Ratio 17, Glucose Level 91, Calcium Level 8.5, Corrected Calcium 9.3, Iron Level 34L, Total Bilirubin 1.0, Aspartate Amino Transf (AST/SGOT) 25, Alanine Aminotransferase (ALT/SGPT) 12, Alkaline Phosphatase 46, Total Protein 5.5L, Albumin 3.0L Pending Labs Laboratory Tests 08/20/20 04:58: White Blood Count 8.4, Red Blood Count 2.58, Hemoglobin 8.4, Hematocrit 26, Mean Corpuscular Volume 101, Mean Corpuscular Hemoglobin 33, Mean Corpuscular Hemoglobin Concent 32, Red Cell Distribution Width 14.8, Platelet Count 310, Mean Platelet Volume 10.3, Immature Granulocyte % (Auto) 1, Neutrophils (%) (Auto) 69, Lymphocytes (%) (Auto) 14, Monocytes (%) (Auto) 9, Eosinophils (%) (Auto) 6, Basophils (%) (Auto) 1, Neutrophils # (Auto) 5.8, Lymphocytes # (Auto) 1.2, Monocytes # (Auto) 0.8, Eosinophils # (Auto) 0.5, Basophils # (Auto) 0.0, Immature Granulocyte # (Auto) 0.0, Sodium Level 135, Potassium Level 4.3, Chloride Level 101, Carbon Dioxide Level 22, Anion Gap 12, Blood Urea Nitrogen 21, Creatinine 1.21, Estimat Glomerular Filtration Rate 58, BUN/Creatinine Ratio 17, Glucose Level 91, Calcium Level 8.5, Corrected Calcium 9.3, Iron Level 34, Total Bilirubin 1.0, Aspartate Amino Transf (AST/SGOT) 25, Alanine Aminotransferase (ALT/SGPT) 12, Alkaline Phosphatase 46, Total Protein 5.5, Albumin 3.0 Discharge Home Medications: Active Scripts Active Certavite-Antioxidant Tablet (Multivitamin/Iron/Folic Acid) 1 Each Tablet 1 Ea PO DAILY@0700 Folic Acid 1 Mg Tablet 1 Mg PO DAILY Boudreauxs (Zinc Oxide) 28 Gm Oint 0 Gm TOP NEEDED PRN Gabapentin 100 Mg Capsule 100 Mg PO BID Metoprolol Tartrate 50 Mg Tablet 50 Mg PO BID Reported Isosorbide Mononitrate ER (Isosorbide Mononitrate) 120 Mg Tab.er.24h 120 Mg PO DAILY Vitamin B-12 (Cyanocobalamin (Vitamin B-12)) 1,000 Mcg Tablet 1,000 Mcg PO DAILY Tricor (Fenofibrate Nanocrystallized) 145 Mg Tablet 145 Mg PO DAILY Tramadol HCl 50 Mg Tablet 50 Mg PO Q6H PRN Terazosin HCl 5 Mg Capsule 5 Mg PO HS Ranexa (Ranolazine) 500 Mg Tab.er.12h 500 Mg PO Q12H Proair Hfa (Albuterol Sulfate) 1 Puff Puff 1 Puff IH Q4H PRN Pravastatin Sodium 80 Mg Tablet 80 Mg PO HS Nitroglycerin 0.4 Mg Tab.subl 0.[address] UD [address] 1 TAB UNDER THE TONGUE EVERY 5 MINUTES NEEDED FOR CHEST PAIN Nexium (Esomeprazole Magnesium) 40 Mg Cap 40 Mg PO DAILY l-Lysine (Lysine) 500 Mg Tablet 500 Mg PO BID PRN Furosemide 40 Mg Tablet 40 Mg PO DAILY PRN Acid Agricultural Equipment Salesperson (FAMOTIDINE) (Famotidine) 20 Mg Tablet 20 Mg PO HS Plavix (Clopidogrel Bisulfate) 75 Mg Tablet 75 Mg PO DAILY Vitamin D3 (Cholecalciferol (Vitamin D3)) 125 Mcg Tablet 125 Mcg PO DAILY Betamethasone Valerate 15 Gm Oint...g. 1 Applic TP TID PRN Aspirin EC (Aspirin) 81 Mg Tablet.dr 81 Mg PO DAILY Instructions to patient/family Please see electronic discharge instructions given to patient. Diagnosis/Problems Diagnosis/Problems (1) Status post left hip replacement (2) CAD (coronary artery disease) (3) Hypertension (4) Hyperlipemia (5) BPH (benign prostatic hyperplasia) (6) Anemia (7) GERD (gastroesophageal reflux disease) LYNDA MARSHALL DO Aug 25, 2020 06:25
[2020-08-25] MEDS: MULTIVIT W/MINERALS TAB (THERAGRAN M) PO SCH (06:55)
[2020-08-25 07:30] VITALS: BP 112/65
[2020-08-25] MEDS: VITAMIN D3 125 MCG (5,000 UNITS) CAPSULE PO SCH (08:26)
[2020-08-25] MEDS: FOLIC ACID 1 MG TAB PO SCH (08:26)
[2020-08-25] MEDS: RANOLAZINE ER 500 MG TAB (RANEXA) PO SCH (08:26)
[2020-08-25] MEDS: ASPIRIN E.C. 81 MG (ECOTRIN) TAB PO SCH (08:26)
[2020-08-25] MEDS: CLOPIDOGREL 75 MG (PLAVIX) TABLET PO SCH (08:26)
[2020-08-25] MEDS: IRON SUCROSE 200 MG/10 ML (VENOFER) VIAL IV SCH (08:26)
[2020-08-25] MEDS: GABAPENTIN 100 MG (NEURONTIN) CAP PO SCH (08:26)
[2020-08-25] MEDS: CYANOCOBALAMIN 1,000 MCG (VITAMIN B-12) TABLET PO SCH (08:27)
[2020-08-25] MEDS: ISOSORBIDE MONONITRATE 30 MG (IMDUR) TAB PO SCH (08:27)
[2020-08-25] MEDS: PANTOPRAZOLE 40 MG (PROTONIX) TAB PO SCH (08:27)
[2020-08-25] MEDS: polyethylene glycoL POWDER 17 GM (MIRALAX) PACK PO SCH (08:27)
[2020-08-25] MEDS: meTOprolol TARTRATE 50 MG (LOPRESSOR) TAB PO SCH (08:27)
[2020-08-25] MEDS: FENOFIBRATE 134 MG (LOFIBRA) CAPSULE PO SCH (08:27)
[2020-08-25] MEDS: ACETAMINOPHEN 325 MG TABLET PO PRN (08:31)
[2020-08-25] MEDS: SENNA W/DOCUSATE (SENOKOT S) TABLET PO SCH (08:32)
[2020-08-25] MEDS: DOCUSATE SODIUM 100 MG (COLACE) CAP PO SCH (08:32)
[2020-08-25 11:33] VITALS: BP 112/65
--- NOTE | 2020-08-26 09:21 | Therapy Team Discharge Summary ---
Therapy Discharge Summary Discharge Recommendations Date of Discharge Aug 25, 2020 at 10:20 Physical Therapy Patient came to rehab following a left DENISA. Upon evaluation patient performed bed mobility with SBA, supine <-> sit min assist, sit <-> stand CGA, transfers CGA, car transfer min assist, ambulated 150' with a rolling walker with CGA (including 50' with at least 2 turns of 90 degrees but needed min assist for 10' over an uneven surface), and went up and down 1 step using a rolling walker with min assist. Patient has been performing bed mobility and transfer training, balance and endurance training, functional strengthening, stair training, gait training, and education. 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 Now, patient performs bed mobility and transfers with independence, independent with car transfers, ambulates 200' with a rolling walker with setup but less with independence (including 50' with at least 2 turns of 90 degrees and 10' over an uneven surface), and can go up and down 4 steps using 2 handrails with setup. Patient has been discharged from this facility and will be discharged from PT at this time. Occupational Therapy Decreased Activ Tolerance, Decreased UE Strength, Impaired I ADL's PT Tearoom Host Goals Tearoom Host Goals PT Tearoom Host Goals Time Frame: September 04, 2020 Roll Left to Right (QC): 6 Sit to Lying (QC): 6 Lying-Sitting on Side/Bed(QC): 6 Sit to Stand (QC): 6 Chair/Omf-ei-Iudam Xfer(QC): 6 Car Transfer (QC): 6 Does the Patient Walk: Yes Walk 10 feet (QC): 6 Walk 10ft-Uneven Surface(QC): 6 Walk 50ft with 2 Turns (QC): 6 Walk 150 ft (QC): 6 Does the Pt use WC or Scooter?: No Wheel 50 feet with 2 turns (QC: 9 1 Step (curb) (QC): 6 4 Steps (QC): 6 12 Steps (QC): 6 Picking up an Object (QC): 4 OT Tearoom Host Goals Tearoom Host Goals Time Frame: September 06, 2020 Eating (QC): 6 (met) Oral Hygiene (QC): 6 (met) Shower/Bathe Self (QC): 6 (not met, set up) Upper Body Dressing (QC): 6 (met) Lower Body Dressing (QC): 6 (met) On/Off Footwear (QC): 6 (met) Toileting Hygiene (QC): 6 (met) Toilet/Commode Transfer (QC): 6 Additional Goals: 1-Demonstrate ADL Tasks, 2-Verbalize Understanding, 3-ImproveStrength/Leonela 1=Demonstrate adherence to instructed precautions during ADL tasks. 2=Patient will verbalize/demonstrate understanding of assistive devices/modifications for ADL. 3=Patient will improve strength/tolerance for activity to enable patient to perform ADL's. Speech Half-Way Goals Half-Way Goals Patient will improve cognitive-communication skills necessary for safety and daily living tasks with minimal assist. LUZ BOYD PT Aug 26, 2020 09:21
--- NOTE | 2020-08-26 11:05 | Therapy Team Discharge Summary ---
Therapy Discharge Summary Discharge Recommendations Date of Discharge Aug 25, 2020 at 10:20 Occupational Therapy Pt admitted to [facility] s/p L DENISA. At PLOF, pt was independent with ADLs using wal ker. Upon initial evaluation, pt was independent with eating, SBA oral care, min A showering, set up upper body dressing, min A lower body dressing, min A footwear and SBA toileting. OT tx focused on increasing BUE strength and activity tolerance, as well as increasing safety and independence with ADLs and functional mobility. At discharge pt required set up assistance wtih showering, and was independent with all other ADLs. Pt made good progress towards goals, meeting IND level with eating, oral care, upper/lower body dressing, footwear, and toileting. Pt discharged from facility, d/c from OT. Decreased Activ Tolerance, Decreased UE Strength, Impaired I ADL's PT Intermediate Goals Intermediate Goals PT Regulatory Lead Goals Time Frame: September 04, 2020 Roll Left to Right (QC): 6 Sit to Lying (QC): 6 Lying-Sitting on Side/Bed(QC): 6 Sit to Stand (QC): 6 Chair/Rmo-ff-Ezfxc Xfer(QC): 6 Car Transfer (QC): 6 Does the Patient Walk: Yes Walk 10 feet (QC): 6 Walk 10ft-Uneven Surface(QC): 6 Walk 50ft with 2 Turns (QC): 6 Walk 150 ft (QC): 6 Does the Pt use WC or Scooter?: No Wheel 50 feet with 2 turns (QC: 9 1 Step (curb) (QC): 6 4 Steps (QC): 6 12 Steps (QC): 6 Picking up an Object (QC): 4 OT Intermediate Goals Intermediate Goals Time Frame: September 06, 2020 Eating (QC): 6 (met) Oral Hygiene (QC): 6 (met) Shower/Bathe Self (QC): 6 (not met, set up) Upper Body Dressing (QC): 6 (met) Lower Body Dressing (QC): 6 (met) On/Off Footwear (QC): 6 (met) Toileting Hygiene (QC): 6 (met) Toilet/Commode Transfer (QC): 6 Additional Goals: 1-Demonstrate ADL Tasks, 2-Verbalize Understanding, 3- ImproveStrength/Leonela 1=Demonstrate adherence to instructed precautions during ADL tasks. 2=Patient will verbalize/demonstrate understanding of assistive devices/modifications for ADL. 3=Patient will improve strength/tolerance for activity to enable patient to perform ADL's. Speech Regulatory Lead Goals Intermediate Goals Patient will improve cognitive-communication skills necessary for safety and daily living tasks with minimal assist. MILLIE BRANCH OT Aug 26, 2020 11:05
== END 2020-08-25 10:20 | disposition home health service (06) | DRG 560 ==
PROVIDERS: ADMIT Internal Medicine; ATTEND Internal Medicine
DX: M84.659 Pathological fracture in other disease, hip, unspecified (principal); D62 Acute posthemorrhagic anemia; Z96.642 Presence of left artificial hip joint; I10 Essential (primary) hypertension; I25.10 Atherosclerotic heart disease of native coronary artery without angina pectoris; E78.00 Pure hypercholesterolemia, unspecified; E78.5 Hyperlipidemia, unspecified; N40.0 Benign prostatic hyperplasia without lower urinary tract symptoms; Z66 Do not resuscitate; K21.9 Gastro-esophageal reflux disease without esophagitis; M19.91 Primary osteoarthritis, unspecified site; M54.9 Dorsalgia, unspecified; Z79.82 Long term (current) use of aspirin
CPT/HCPCS: 36415; 80053; 83540; 85025; 94760

== ENCOUNTER → 2020-09-27 | Outpatient (CLI) | payer MEDICARE ==
[~2020-09-27] MED LIST: ASPI-1238 PO; BETA15OI2 TP; CALC-250 PO; CARV25TA PO; CLOP75TA69 PO; CYAN-41 PO; FAMO20TA3 PO; FENO145T2 PO; FOLI1TAB33 PO; FURO40TA4 PO; GABA-486 PO; ISOS120T9 PO; ISOS30TA82 PO; LYSI500T10 PO; METO100T12 PO; METO50TA15 PO; MULT-1009 PO; MULT1TAB63 PO; MUPI22OI2 NSEACH; NF-ESOM40C PO; NITR0.4T39 SL; PRAV80TA2 PO; RANO500T3 PO; RT-ALBUINH IH; SENN-145 PO; SPIR25TA5 PO; TERA5CAP10 PO; TRM50T PO; ZINC28PA TOP; [UNRECOGNIZED DRUG - SUPPLY] TOP
--- NOTE | 2020-09-27 12:43 | Diagnostic Imaging Report ---
PROCEDURE: US Thyroid. TECHNIQUE: Multiple Real-time grayscale images were obtained of the thyroid in various projections. INDICATION: Multinodular thyroid. FINDINGS: The prior thyroid ultrasound exam performed on 09/26/2019 noted bilateral thyroid nodules. The nodules did seem slightly smaller when compared to the prior exam of 01/27/2019. On this study, the thyroid nodules seem similar in size and appearance to the prior exam. The nodule in the inferior pole of the right lobe does measure somewhat greater than on the prior exam. That nodule is now estimated to be 1.5 x 1.3 x 1.3 cm as opposed to 1.3 x 1.1 x 1.1 cm on the prior study. The subcentimeter nodules in each lobe seem similar to the prior exam. The thyroid gland itself remains enlarged with the right lobe measuring 5.0 x 2.9 x 2.3 cm while the left lobe is estimated to be 5.4 x 1.8 x 2.2 cm (normal gland size is 4-5 x 2 x 2 cm or less). IMPRESSION: The thyroid gland is enlarged and the small nodules in both lobes seen previously appear similar to the prior exam. No new abnormality has developed otherwise. Dictated by: Dictated on workstation # [id number]
== END ==
LOC: RAD 11:05
PROVIDERS: ATTEND Family Medicine
DX: E04.2 Nontoxic multinodular goiter (principal)
CPT/HCPCS: 76536

== ENCOUNTER → 2021-05-27 | Outpatient (CLI) | payer MEDICARE ==
[~2021-05-27] MED LIST changes: +FOLI1TAB30 PO; -MULT1TAB63 PO
[2021-05-27 12:17] LABS: HEMATOCRIT 33 % (40-54); HEMOGLOBIN 10.8 g/dL (13.3-17.7); MEAN CORPUSCULAR HEMOGLOBIN 33 pg (25-34); MEAN CORPUSCULAR HGB CONC 33 g/dL (32-36); MEAN CORPUSCULAR VOLUME 101 fL (80-99); MEAN PLATELET VOLUME 9.7 fL (9.0-12.2); PLATELET COUNT 217 10^3/uL (130-400); WHITE BLOOD COUNT 8.3 10^3/uL (4.3-11.0)
[2021-05-27 12:39] LABS: ALBUMIN 3.4 GM/DL (3.2-4.5); BILIRUBIN,TOTAL 0.5 MG/DL (0.1-1.0); CALCIUM 8.9 MG/DL (8.5-10.1); CREATININE SERUM 2.58 MG/DL (0.60-1.30); POTASSIUM 4.2 MMOL/L (3.6-5.0); TOTAL PROTEIN 6.4 GM/DL (6.4-8.2)
--- NOTE | 2021-05-27 12:42 | Diagnostic Imaging Report ---
INDICATION: Cough and shortness of breath. PA and lateral chest obtained at 12:33 p.m. and compared 01/23/2019. FINDINGS: There is cardiomegaly and poststernotomy change. Compared to the prior study, there is new pacemaker device in place. There is no pneumothorax or pleural fluid. Right upper lobe and basilar infiltrates are present compatible with pneumonia. There is central vascular congestion. IMPRESSION: Cardiomegaly and central vascular congestion. New pacemaker placed compared to the prior study. There is new infiltrate in the right upper lobe and base compatible with pneumonia. Dictated by: Dictated on workstation # [id number]
== END ==
LOC: RAD 12:21
PROVIDERS: ATTEND Family Medicine
DX: I51.7 Cardiomegaly (principal); R91.8 Other nonspecific abnormal finding of lung field; R09.89 Other specified symptoms and signs involving the circulatory and respiratory systems; Z95.0 Presence of cardiac pacemaker
CPT/HCPCS: 36415; 71046; 80053; 83880; 84484; 85027; 85379; 93005